=== PATIENT | male | born 1965 | race Caucasian/White ===

== ENCOUNTER 2023-10-13 08:15 | Emergency (ER) | payer MEDICARE, MEDICAID, SELFPAY ==
[2023-10-13 08:18] VITALS: BP 133/70; PULSE 96; RESP 16; TEMP 36; O2SAT 98
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
[2023-10-13 09:09] LABS: Color, Urine Yellow (Yellow); Glucose, Dipstick 1000 mg/dl (Normal); Ketone-Dipstick Negative (Negative); Leukocyte Esterase-Dipstick 100 /ul (Negative); Mucous, Urine 0 SEEN /hpf (<or=2+); Nitrite-Dipstick Negative (Negative); Occult Blood-Urine 25 /ul (Negative); Protein-Dipstick 15 mg/dl (Negative); Red Blood Cells-Urine 0 SEEN /hpf (0-5); Urine Bilirubin Dipstick Negative (Negative); Urine Clarity Cloudy (Clear); Urine Urobilinogen Normal (Normal); Urine pH 6.5 (5.0 - 8.0)
[2023-10-13 09:35] LABS: Squamous Epithelial Cells - UA 0-5 SEEN /hpf (0-5); White Blood Cells 50-100 SEEN /hpf (0-5)
[2023-10-13 09:36] LABS: Bacteria RARE /hpf (None Seen); Yeast-Urine 1+ /hpf (None Seen)
[2023-10-13] MEDS: Cephalexin 250 MG Capsule 500 MG PO (10:15)
[2023-10-13 10:24] VITALS: BP 130/65; PULSE 85; RESP 16; TEMP 37; O2SAT 99
== END 2023-10-13 10:25 | disposition home or self-care (01) ==
PROVIDERS: Emergency Provider Emergency Medicine; Visit Provider Emergency Medicine
DX: N39.0 Urinary tract infection, site not specified (principal); R33.9 Retention of urine, unspecified
CPT/HCPCS: 51702; 81001; 87086; 87088; 99283

== ENCOUNTER 2023-10-25 09:15 | Emergency (ER) | payer MEDICARE, MEDICAID, SELFPAY ==
[2023-10-25 09:16] VITALS: BP 136/80; PULSE 103; RESP 18; TEMP 37.1; O2SAT 97
[2023-10-25 09:29] VITALS: BP 130/90; PULSE 86; RESP 18; TEMP 36.8; O2SAT 94; BMI 26.1
--- NOTE | 2023-10-25 10:09 | EX.ED.GUMALE ---
HPI History of Present Illness Chief Complaint: Plata C/O Narrative Narrative: 58-year-old male presenting with inability to urinate. He states he typically self catheterizes but is unable to do so since last night at 730. He states that he has had Plata catheters in the past. He states that he established with a urologist in [place] yesterday. He was voiding at that point. He states he does get frequent UTIs. He is allergic to an unknown antibiotic. He has not had any fevers, chills. [facility] Medical History Hx of gastroesophageal reflux (GERD) PTSD (post-traumatic stress disorder) Prediabetes Anxiety and depression Paraplegia Home Medications ?Medication ?Instructions ?Recorded ?Last Taken ?Type cephalexin 500 mg capsule 500 mg PO Q12 #14 CAPSULES 10/13/23 Unknown Rx ciprofloxacin HCl 500 mg tablet 500 mg PO BID #14 tabs 10/25/23 Unknown Rx (Cipro) Allergy/AdvReac Type Severity Reaction Status Date / Time cephalexin (From Keflex) Allergy Severe Anaphylaxis Verified 10/25/23 11:55 latex Allergy Rash Verified 10/25/23 11:55 Social History Smoking Status: Former smoker ROS ROS ED Constitutional Constitutional ED: Denies chills, fever(s) or sweats Eyes Eyes: Denies blurry vision or change in vision ENT ENT ED: Denies ear pain or sore throat Cardiovascular Cardiovascular: Denies chest pain, palpitations or racing heartbeat Respiratory/Chest Respiratory/Chest: Denies cough, dyspnea or sputum Gastrointestinal Gastrointestinal: Denies abdominal pain, constipation, diarrhea, nausea or vomiting Genitourinary Genitourinary ED: Reports other Details: Inability to urinate ; Denies dysuria, hematuria or urinary frequency Musculoskeletal Musculoskeletal: Denies arthralgias, myalgias or neck pain Integumentary Denies abscess, Abrasions or rash Neurologic Neurologic: Denies headache(s), paresthesias or weakness Psychiatric Psychiatric: Denies anxiety, depression, suicidal ideation or suicidal thoughts Endocrine Endocrinology: Denies polydipsia or polyuria EXAM Physical Exam Const Vital Signs: 10/25/23 09:16 10/25/23 09:29 10/25/23 11:15 Temperature 98.7 F 98.2 F Temperature Source Temporal Oral Pulse Rate 103 H 86 73 Respiratory Rate 18 18 16 Blood Pressure 136/80 H 130/90 H 143/74 H Blood Pressure Mean 98 103 97 Pulse Ox 97 94 95 Oxygen Delivery Method Room Air Room Air Positive well nourished General Appearance ED: NAD HEENT Reports moist mucous membranes normocephalic and atraumatic Eyes PERRL Resp normal respiratory effort Cardio regular rate and regular rhythm Neuro oriented x3 and CN's II-XII intact bilaterally Sensorium / Orientation: alert Psych mental status grossly normal MDM MDM MDM Narrative Medical decision making narrative: Patient presenting with inability to urinate. He states he had frequent UTIs. He also self catheterizes and is unable to do so at home. Patient was discharged with a Plata catheter but states that something happened to it where it was not working so he removed it himself. Differential includes UTI, pyelonephritis, acute kidney injury. IV line was established. Patient given a liter normal saline. Urinalysis will be obtained via Plata catheterization. Will check basic labs including CBC, BMP. CBC shows normal white blood cell count of 6.7, hemoglobin 13.0, platelets 310 renal function and electrolytes normal. Glucose 155 without anion gap. Urinalysis shows. 50-100 white blood cells with no squamous epithelial cells and 4+ bacteria consistent with UTI. Sent for culture. Currently waiting for the patient to find out the antibiotic and is allergic to show ideally, dose here and a prescription for home. He is trying to contact his previous provider. Patient reports that he discovered his allergy was to Keflex which she just took last week. He reports that he has anaphylaxis to Keflex although he took a full prescription with no allergy. [facility] He is to leave the Plata catheter in place until he follows up with his urologist. Return precautions discussed. Impression: 1. Urinary retention 2. UTI Lab Data Attestation: I reviewed the patient's lab results. Labs: Laboratory Results - last 24 hr 10/25/23 10/25/23 10:30 10:40 WBC 6.7 RBC 4.73 Hgb 13.0 Hct 41.7 MCV 88.2 MCH 27.5 MCHC 31.2 L RDW Std Deviation 47.0 H RDW Coeff of [place] 14.6 Plt Count 310 MPV 9.3 Immature Gran % (Auto) 0.300 Neut % (Auto) 71.3 H Lymph % (Auto) 21.0 [place] % (Auto) 5.2 Eos % (Auto) 1.5 Baso % (Auto) 0.7 Absolute Neuts (auto) 4.8 Absolute Lymphs (auto) 1.40 Nucleated RBC % 0 Sodium 139 Potassium 3.5 Chloride 108 H Carbon Dioxide 30.0 Anion Gap 1 L BUN 10 Creatinine 0.88 Estim Creat Clear Calc 92.62 Est GFR (MDRD) Af Amer 115 Est GFR (MDRD) Non-Af 95 BUN/Creatinine Ratio 11.4 Glucose 155 H Calcium 9.2 Urine Color Yellow Urine Clarity Cloudy Urine pH 6.0 Ur Specific [place] 1.015 Urine Protein 30 H Urine Glucose (UA) 1000 H Urine Ketones Negative Urine Occult Blood 25 H Urine Nitrite Negative Urine Bilirubin Negative Urine Urobilinogen Normal Ur Leukocyte Esterase 500 H Urine RBC 0 SEEN Urine WBC 50-100 SEEN Ur Squamous Epith Cells 0 SEEN Urine Bacteria 4+ Urine Mucus 0 SEEN Discharge Plan Triage Chief Complaint: Plata C/O Other Complaint: Complaint ED Provider: Iglesia Wylie Dx/Rx/DC Orders Instructions: ED Plata Catheter, Care, ED Urinary Retention, Male, ED Urinary Tract Infections in Men Prescriptions: New ciprofloxacin HCl [Cipro] 500 mg tablet 500 mg PO BID Qty: 14 0RF No Action cephalexin 500 mg capsule 500 mg PO Q12 Qty: 14 0RF Primary Care Provider: Jocelynn Blue Referrals: Care Physician,No Primary [Non-Staff] - Print Language: Yi Disposition Disposition: Home, Self Care
[2023-10-25] MEDS: 0.9% Normal Saline (1000mL) 1,000 ML 1000 ML IV (10:30)
[2023-10-25 10:42] LABS: Absolute Neutrophil Count 4.8 X10^3/uL (2.0-7.7); Basophil# 0.05 X10^3/uL; Basophil% 0.7 % (0-1); Eosinophils% 1.5 % (0-5); Hematocrit 41.7 % (40-54); Mean Corp Hgb Conc 31.2 g/dL (32-36); Mean Corpuscular Hgb 27.5 pg (27.0-32.0); Mean Corpuscular Volume 88.2 fL (80-94); Mean Platelet Vol. 9.3 fl (6.2-12.0); Monocyte# 0.35 X10^3/uL; Monocyte% 5.2 % (0-10); NRBC Flagged by Analyzer 0 % (0-5); Neutrophil # 4.76 X10^3/uL (2.7-7.7); Neutrophil % 71.3 % (47-70); Platelet Count 310 K/mm3 (150-450); RBC Distribution Width CV 14.6 % (11.6-14.6); Red Blood Count 4.73 M/mm3 (4.6-6.2); White Blood Count 6.7 K/mm3 (4.4-11.0)
[2023-10-25 10:47] LABS: Red Blood Cells-Urine 0 SEEN /hpf (0-5); Squamous Epithelial Cells - UA 0 SEEN /hpf (0-5)
[2023-10-25 10:48] LABS: Mucous, Urine 0 SEEN /hpf (<or=2+)
[2023-10-25 10:49] LABS: Anion Gap 1 (5-15); BUN 10 mg/dL (7-18); BUN/Creat Ratio 11.4 RATIO (10-20); Calcium,Total 9.2 mg/dL (8.5-10.1); Chloride 108 mmol/L (98-107); Creatinine, Serum 0.88 mg/dL (0.70-1.30); EST Glomerular Filtration Rate 95 mL/min (>60); Est Glom Filt Rate - Afr Amer 115 mL/min (>60); Estimated Creatinine Clearance 92.62 ml/min; Glucose 155 mg/dL (74-106); Potassium 3.5 mmol/L (3.5-5.1); Sodium Level 139 mmol/L (136-145)
[2023-10-25 10:51] LABS: Color, Urine Yellow (Yellow); Glucose, Dipstick 1000 mg/dl (Normal); Ketone-Dipstick Negative (Negative); Leukocyte Esterase-Dipstick 500 /ul (Negative); Nitrite-Dipstick Negative (Negative); Occult Blood-Urine 25 /ul (Negative); Protein-Dipstick 30 mg/dl (Negative); Specific Gravity, Urine 1.015 (1.002-1.030); Urine Bilirubin Dipstick Negative (Negative); Urine Clarity Cloudy (Clear); Urine Urobilinogen Normal (Normal)
[2023-10-25 10:56] LABS: Bacteria 4+ /hpf (None Seen); White Blood Cells 50-100 SEEN /hpf (0-5)
[2023-10-25 11:15] VITALS: BP 143/74; PULSE 73; RESP 16; O2SAT 95
[2023-10-25 12:24] VITALS: BP 155/92; PULSE 88; RESP 16; TEMP 36.8; O2SAT 98
[2023-10-25] MEDS: Ciprofloxacin 500 MG Tablet PO (12:24)
== END 2023-10-25 12:39 | disposition home or self-care (01) ==
PROVIDERS: Emergency Provider Student in an Organized Health Care Education/Training Program; Visit Provider Student in an Organized Health Care Education/Training Program
DX: N39.0 Urinary tract infection, site not specified (principal); Z87.891 Personal history of nicotine dependence
CPT/HCPCS: 51702; 80048; 81001; 85025; 87077; 87086; 87088; 87186; 96360; 96361; 99284; J7030; A4216

== ENCOUNTER → 2023-10-30 | Outpatient (CLI) | payer MEDICARE, MEDICAID, SELFPAY ==
[2023-10-30 15:33] LABS: Amphetamine Urine VISTA NEGATIVE (<1000 ng/mL); Barbiturate Urine VISTA NEGATIVE (< 200 ng/mL); Benzodiazepine Urine VISTA NEGATIVE (< 200 ng/mL); Cocaine Urine VISTA NEGATIVE (< 300 ng/mL); Ecstacy Urine VISTA NEGATIVE (< 500 ng/mL); Methadone Urine VISTA NEGATIVE (< 300 ng/mL); PCP Urine VISTA NEGATIVE (< 25 ng/mL); THC Urine VISTA NEGATIVE (< 50 ng/mL); Vista UDS pH Range 5
== END | disposition home or self-care (01) ==
PROVIDERS: Referring Provider Anesthesiology; Visit Provider Anesthesiology
DX: F11.20 Opioid dependence, uncomplicated (principal)
CPT/HCPCS: 80307

== ENCOUNTER 2023-11-03 13:30 | Emergency (ER) | payer MEDICARE, MEDICAID, SELFPAY ==
[2023-11-03 13:32] VITALS: BP 104/79; PULSE 82; RESP 20; TEMP 37; O2SAT 93
[2023-11-03 13:57] VITALS: BMI 26.0
[2023-11-03] MEDS: Ondansetron 4 MG/2 ML Vial IV (14:37)
[2023-11-03] MEDS: 0.9% Normal Saline (1000mL) 1,000 ML 999 ML IV (14:38)
--- NOTE | 2023-11-03 14:45 | RAD_ITS ---
STUDY: X-RAY - ABDOMEN/PELVIS REASON FOR EXAM: Male, 58 years old. vomiting TECHNIQUE: Two AP supine views of the abdomen and pelvis. COMPARISON: None. FINDINGS: Normal visualized lung bases. There is an abundance of fecal material throughout the colon. There is no demonstrated free abdominal air. The visualized liver, spleen and kidneys are grossly normal in size and morphology. There are calcified phleboliths in the pelvis. Normal visualized osseous structures. RAD/Abdomen Single View IMPRESSION: No acute findings, retained stool throughout the colon Electronically Signed: Servando Cortez MD at 15:07 EDT ,
[2023-11-03 14:50] LABS: Absolute Lymphocyte Count 0.94 X10^3/uL (0.83-4.51); Absolute Neutrophil Count 9.4 X10^3/uL (2.0-7.7); Basophil# 0.03 X10^3/uL; Basophil% 0.3 % (0-1); Hematocrit 46.1 % (40-54); Hemoglobin 14.6 g/dL (13.0-16.5); Lymphocyte # 0.94 X10^3/ul (0.83-4.51); Lymphocyte % 8.8 % (19-41); Mean Corp Hgb Conc 31.7 g/dL (32-36); Mean Corpuscular Hgb 27.8 pg (27.0-32.0); Mean Corpuscular Volume 87.8 fL (80-94); Mean Platelet Vol. 10.3 fl (6.2-12.0); Monocyte# 0.32 X10^3/uL; NRBC Flagged by Analyzer 0 % (0-5); Neutrophil # 9.39 X10^3/uL (2.7-7.7); Neutrophil % 87.6 % (47-70); Platelet Count 358 K/mm3 (150-450); RBC Distribution Width CV 14.6 % (11.6-14.6); RBC Distribution Width SD 46.6 fl (35.1-43.9); Red Blood Count 5.25 M/mm3 (4.6-6.2); White Blood Count 10.7 K/mm3 (4.4-11.0)
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
[2023-11-03 15:26] LABS: AST(SGOT) 26 U/L (15-37); Alanine Aminotransfer ALT/SGPT 31 U/L (16-61); Albumin, Serum 3.8 g/dL (3.2-5.0); Alkaline Phosphatase 134 U/L (45-117); Anion Gap 10 (5-15); BUN 10 mg/dL (7-18); BUN/Creat Ratio 13.3 RATIO (10-20); Calcium,Total 9.5 mg/dL (8.5-10.1); Chloride 101 mmol/L (98-107); Creatinine, Serum 0.75 mg/dL (0.70-1.30); EST Glomerular Filtration Rate 114 mL/min (>60); Est Glom Filt Rate - Afr Amer 138 mL/min (>60); Estimated Creatinine Clearance 108.67 ml/min; Glucose 110 mg/dL (74-106); Lipase 10 U/L (13-75); Potassium 3.4 mmol/L (3.5-5.1); Protein, Total 7.8 g/dL (6.4-8.2); Sodium Level 136 mmol/L (136-145)
[2023-11-03] MEDS: Mag Hydrox/Al Hydrox/Simeth 30 ML UDC PO (15:34)
[2023-11-03 15:35] VITALS: BP 137/69; PULSE 76; RESP 15; TEMP 36.3; O2SAT 98
[2023-11-03 16:40] VITALS: BP 127/79; PULSE 88; RESP 18; TEMP 36.6; O2SAT 98
== END 2023-11-03 16:42 | disposition home or self-care (01) ==
PROVIDERS: Nurse Practitioner; Emergency Provider Emergency Medicine; PCP Family Medicine; Visit Provider Emergency Medicine
DX: R10.13 Epigastric pain (principal); G82.20 Paraplegia, unspecified; R11.2 Nausea with vomiting, unspecified; Z99.3 Dependence on wheelchair; Z87.891 Personal history of nicotine dependence
CPT/HCPCS: 74018; 80053; 83690; 85025; 96361; 96374; 99283; J7030; A4216; J2405

== ENCOUNTER 2023-11-09 08:10 | Outpatient (RCR) | payer MEDICARE, MEDICAID, SELFPAY | END 2023-11-09 19:00 | disposition home or self-care (01) | LOC: PT 08:10 | PROVIDERS: PCP Family Medicine | DX: M50.20 Other cervical disc displacement, unspecified cervical region (principal) | CPT/HCPCS: 97162 ==

== ENCOUNTER 2023-11-11 07:55 | Emergency (ER) | payer MEDICARE, MEDICAID, SELFPAY ==
[2023-11-11 07:56] VITALS: BP 119/74; PULSE 119; RESP 18; TEMP 36.1; O2SAT 99
--- NOTE | 2023-11-11 08:44 | EDS_ITS ---
HPI History of Present Illness Chief Complaint: General Illness Narrative Narrative: 58-year-old male presenting with nausea, vomiting, dyspepsia. Has had this for over a week. He states he was here about a week ago and treated for it. He had a GI cocktail at home and is unable to eat regular food. He is able to hold down Ensure but is unable to tolerate solid food. He had some Zofran which helped with the nausea and he ran out and he had his PCP refill it. He still has this helps with the nausea. He states he has burning in his throat and in his stomach. Denies fevers or chills. Denies diarrhea. Patient is on omeprazole 40 mg p.o. twice daily. He is also on oxycodone and morphine as well as Carafate and Zofran. [facility] Medical History Hx of gastroesophageal reflux (GERD) PTSD (post-traumatic stress disorder) Prediabetes Anxiety and depression Paraplegia Home Medications ?Medication ?Instructions ?Recorded ?Last Taken ?Type cephalexin 500 mg capsule 500 mg PO Q12 #14 CAPSULES 10/13/23 Unknown Rx ciprofloxacin HCl 500 mg tablet 500 mg PO BID #14 tabs 10/25/23 Unknown Rx (Cipro) aripiprazole 10 mg tablet 10 mg PO DAILY 11/03/23 Unknown History atorvastatin 40 mg tablet 40 mg PO QHS 11/03/23 Unknown History ciprofloxacin HCl 250 mg tablet 250 mg PO BID 11/03/23 Unknown History desvenlafaxine succinate 50 mg 50 mg PO DAILY 11/03/23 Unknown History tablet,extended release 24 hr empagliflozin 25 mg tablet 25 mg PO 11/03/23 Unknown History (Jardiance) guanfacine 1 mg tablet,extended 1 mg PO QPM 11/03/23 Unknown History release 24 hr methylprednisolone 4 mg tablets in PO UD 11/03/23 Unknown History a dose pack midodrine 5 mg tablet 5 mg PO DAILY 11/03/23 Unknown History morphine 30 mg capsule,extended 30 mg PO DAILY 11/03/23 Unknown History release pellets ondansetron 4 mg disintegrating 4 mg PO Q8H PRN PRN Nausea #10 tabs 11/03/23 Unknown Rx tablet oxycodone-acetaminophen 10 mg-325 1 tab PO Q6H PRN PRN severe pain 11/03/23 Unknown History mg tablet sucralfate 1 gram tablet (Carafate) 1 g PO TID 7 days #21 tabs 11/03/23 Unknown Rx famotidine 20 mg tablet (Pepcid) 20 mg PO DAILY PRN epigastric pain 11/11/23 Unknown Rx #20 tabs omeprazole 40 mg capsule,delayed 40 mg PO BID 11/11/23 Unknown History release sucralfate 100 mg/mL oral 10 ml PO BID #300 mL 11/11/23 Unknown Rx suspension (Carafate) Allergy/AdvReac Type Severity Reaction Status Date / Time cephalexin (From [employer]) Allergy Severe Anaphylaxis Verified 11/11/23 07:58 latex Allergy Rash Verified 11/11/23 07:58 Social History Smoking Status: Former smoker ROS ROS ED Constitutional Constitutional ED: Denies chills, fever(s) or sweats Eyes Eyes: Denies blurry vision or change in vision ENT ENT ED: Denies ear pain or sore throat Cardiovascular Cardiovascular: Denies chest pain, palpitations or racing heartbeat Respiratory/Chest Respiratory/Chest: Denies cough, dyspnea or sputum Gastrointestinal Gastrointestinal: Reports abdominal pain, nausea and vomiting; Denies constipation or diarrhea Genitourinary Genitourinary ED: Denies dysuria, hematuria or urinary frequency Musculoskeletal Musculoskeletal: Denies arthralgias, myalgias or neck pain Integumentary Denies abscess, Abrasions or rash Neurologic Neurologic: Denies headache(s), paresthesias or weakness Psychiatric Psychiatric: Denies anxiety, depression, suicidal ideation or suicidal thoughts Endocrine Endocrinology: Denies polydipsia or polyuria EXAM Physical Exam Const Vital Signs: 11/11/23 07:56 11/11/23 09:33 11/11/23 10:15 Temperature 96.9 F L 97.7 F L Temperature Source Temporal Temporal Pulse Rate 119 H 103 H Respiratory Rate 18 16 Respiratory Pattern Normal Blood Pressure 119/74 126/79 H Blood Pressure Mean 89 94 Pulse Ox 99 95 Oxygen Delivery Method Room Air Room Air Positive well nourished General Appearance ED: NAD; Negative for pallor HEENT Reports moist mucous membranes Eyes PERRL and EOMs intact bilaterally Resp normal respiratory effort and clear to auscultation bilaterally Cardio regular rate and regular rhythm GI GI Narrative: Mild epigastric tenderness Back/Spine no CVA tenderness Neuro oriented x3 and CN's II-XII intact bilaterally Sensorium / Orientation: alert Psych mental status grossly normal Skin General Skin Exam: Negative for jaundice or pallor MDM MDM MDM Narrative Medical decision making narrative: Patient presenting with nausea and epigastric as well as esophageal burning. He has a history of this. He states he is able to tolerate Ensure but nothing else. Differential includes GERD, gastritis, peptic ulcer disease, dehydration, anemia, electrolyte abnormalities. CBC will be obtained to assess white blood cell count, hemoglobin, platelets. CMP to assess renal function, electrolytes, liver function, glucose. Lipase to assess for pancreatitis. Urinalysis to assess for UTI. Patient given IV Zofran, IV Pepcid, GI cocktail. CBC shows normal white blood cell count 9.5. Hemoglobin 13.6. Platelets are normal at 364. Renal function electrolytes normal. LFTs are normal. Lipase is normal. Urine specimen was obtained from his catheter Plata catheter bag and shows 500 leukocyte esterase without nitrites and there is 50-100 white blood cells with 3+ bacteria this to be sent for culture. Patient is feeling better with GI cocktail treatment. On top of his omeprazole I will send him home with some more Carafate. After we discussed this he then complained that his left foot was swollen. It is not tender to palpation although the patient does not have much sensation in his feet. Pulses normal. His foot is a little bit red.. He has cap refill to all 5 toes. I think given the swelling an ultrasound would be appropriate of the lower extremity although we do not have that here today. He was amenable to an outpatient duplex. I have low suspicion for DVT so I will withhold anticoagulation overnight. Discharged home in stable condition. Impression: 1. Nausea/vomiting 2. History of GERD 3. Left foot swelling Lab Data Attestation: I reviewed the patient's lab results. Labs: Laboratory Results - last 24 hr 11/11/23 11/11/23 09:20 09:30 WBC 9.5 RBC 4.87 Hgb 13.6 Hct 42.6 MCV 87.5 MCH 27.9 MCHC 31.9 L RDW Std Deviation 46.5 H RDW Coeff of Darcy 14.5 Plt Count 364 MPV 9.7 Immature Gran % (Auto) 0.200 Neut % (Auto) 79.3 H Lymph % (Auto) 13.8 L Lea % (Auto) 5.4 Eos % (Auto) 0.9 Baso % (Auto) 0.4 Absolute Neuts (auto) 7.5 Absolute Lymphs (auto) 1.31 Nucleated RBC % 0 Sodium 139 Potassium 3.4 L Chloride 101 Carbon Dioxide 30.0 Anion Gap 8 BUN 14 Creatinine 0.76 Estim Creat Clear Calc 107.24 Est GFR (MDRD) Af Amer 136 Est GFR (MDRD) Non-Af 112 BUN/Creatinine Ratio 18.4 Glucose 145 H Calcium 9.7 Total Bilirubin 0.30 AST 20 ALT 26 Alkaline Phosphatase 102 Total Protein 7.3 Albumin 3.4 Globulin 3.9 Albumin/Globulin Ratio 0.9 Lipase 27 Urine Color Yellow Urine Clarity Cloudy Urine pH 6.5 Ur Specific Lizella 1.015 Urine Protein 30 H Urine Glucose (UA) 1000 H Urine Ketones 15 H Urine Occult Blood 25 H Urine Nitrite Negative Urine Bilirubin Negative Urine Urobilinogen Normal Ur Leukocyte Esterase 500 H Urine RBC 0 SEEN Urine WBC 50-100 SEEN Ur Squamous Epith Cells 0 SEEN Urine Bacteria 3+ Urine Mucus 0 SEEN Discharge Plan Triage Chief Complaint: General Illness ED Provider: Iglesia Wylie Dx/Rx/DC Orders Instructions: ED GERD (Adult) Prescriptions: New sucralfate [Carafate] 100 mg/mL suspension 10 ml PO BID Qty: 300 0RF famotidine [Pepcid] 20 mg tablet 20 mg PO DAILY PRN (Reason: epigastric pain) Qty: 20 0RF No Action cephalexin 500 mg capsule 500 mg PO Q12 Qty: 14 0RF ciprofloxacin HCl [Cipro] 500 mg tablet 500 mg PO BID Qty: 14 0RF omeprazole 40 mg capsule,delayed release(DR/EC) 40 mg PO BID atorvastatin 40 mg tablet 40 mg PO QHS midodrine 5 mg tablet 5 mg PO DAILY ciprofloxacin HCl 250 mg tablet 250 mg PO BID oxycodone-acetaminophen 10-325 mg tablet 1 tab PO Q6H PRN PRN (Reason: severe pain) methylprednisolone 4 mg tablets,dose pack PO UD aripiprazole 10 mg tablet 10 mg PO DAILY morphine 30 mg capsule,extend.release pellets 30 mg PO DAILY desvenlafaxine succinate 50 mg tablet extended release 24 hr 50 mg PO DAILY guanfacine 1 mg tablet extended release 24 hr 1 mg PO QPM Jardiance 25 mg tablet 25 mg PO sucralfate [Carafate] 1 gram tablet 1 g PO TID 7 Days Qty: 21 0RF ondansetron 4 mg tablet,disintegrating 4 mg PO Q8H PRN PRN (Reason: Nausea) Qty: 10 0RF Other Ambulatory Orders: Venous Duplex US, Unilateral (Stat) Facility: [facility] [place] - Location: [facility] Ordered By: Dr. Iglesia Wylie Primary Care Provider: Jocelynn Blue Referrals: Jocelynn Blue MD [Primary Care Provider] - Print Language: Cambodian Disposition Disposition: Home, Self Care Discharge Date/Time: 11/11/23 12:36
[2023-11-11] MEDS: 0.9% Normal Saline (1000mL) 1,000 ML 999 ML IV (09:24)
[2023-11-11] MEDS: Ondansetron 4 MG/2 ML Vial IV (09:24)
[2023-11-11 09:29] LABS: Absolute Lymphocyte Count 1.31 X10^3/uL (0.83-4.51); Absolute Neutrophil Count 7.5 X10^3/uL (2.0-7.7); Basophil# 0.04 X10^3/uL; Basophil% 0.4 % (0-1); Eosinophil# 0.09 X10^3/uL; Eosinophils% 0.9 % (0-5); Hematocrit 42.6 % (40-54); Hemoglobin 13.6 g/dL (13.0-16.5); Lymphocyte # 1.31 X10^3/ul (0.83-4.51); Lymphocyte % 13.8 % (19-41); Mean Corp Hgb Conc 31.9 g/dL (32-36); Mean Corpuscular Hgb 27.9 pg (27.0-32.0); Mean Corpuscular Volume 87.5 fL (80-94); Mean Platelet Vol. 9.7 fl (6.2-12.0); Monocyte# 0.51 X10^3/uL; Monocyte% 5.4 % (0-10); NRBC Flagged by Analyzer 0 % (0-5); Neutrophil # 7.51 X10^3/uL (2.7-7.7); Neutrophil % 79.3 % (47-70); Platelet Count 364 K/mm3 (150-450); RBC Distribution Width CV 14.5 % (11.6-14.6); RBC Distribution Width SD 46.5 fl (35.1-43.9); Red Blood Count 4.87 M/mm3 (4.6-6.2); White Blood Count 9.5 K/mm3 (4.4-11.0)
[2023-11-11] MEDS: Mag Hydrox/Al Hydrox/Simeth 30 ML UDC PO (09:30)
[2023-11-11] MEDS: Famotidine 200 MG/20 ML MDV 20 MG in 0.9% Normal Saline (Pres. free 8 ML 300 MG IV (09:30)
[2023-11-11 09:32] VITALS: BMI 24.7
[2023-11-11 09:40] LABS: Mucous, Urine 0 SEEN /hpf (<or=2+); Red Blood Cells-Urine 0 SEEN /hpf (0-5); Squamous Epithelial Cells - UA 0 SEEN /hpf (0-5)
[2023-11-11 09:41] LABS: ALB/GLOB Ratio 0.9 RATIO (0.9-2.4); AST(SGOT) 20 U/L (15-37); Alanine Aminotransfer ALT/SGPT 26 U/L (16-61); Albumin, Serum 3.4 g/dL (3.2-5.0); Alkaline Phosphatase 102 U/L (45-117); Anion Gap 8 (5-15); BUN 14 mg/dL (7-18); BUN/Creat Ratio 18.4 RATIO (10-20); Calcium,Total 9.7 mg/dL (8.5-10.1); Chloride 101 mmol/L (98-107); Creatinine, Serum 0.76 mg/dL (0.70-1.30); EST Glomerular Filtration Rate 112 mL/min (>60); Est Glom Filt Rate - Afr Amer 136 mL/min (>60); Estimated Creatinine Clearance 107.24 ml/min; Globulin 3.9 g/dL (2.2-4.2); Glucose 145 mg/dL (74-106); Lipase 27 U/L (13-75); Potassium 3.4 mmol/L (3.5-5.1); Protein, Total 7.3 g/dL (6.4-8.2); Sodium Level 139 mmol/L (136-145)
[2023-11-11 09:43] LABS: Color, Urine Yellow (Yellow); Glucose, Dipstick 1000 mg/dl (Normal); Ketone-Dipstick 15 mg/dl (Negative); Leukocyte Esterase-Dipstick 500 /ul (Negative); Nitrite-Dipstick Negative (Negative); Occult Blood-Urine 25 /ul (Negative); Protein-Dipstick 30 mg/dl (Negative); Specific Gravity, Urine 1.015 (1.002-1.030); Urine Bilirubin Dipstick Negative (Negative); Urine Clarity Cloudy (Clear); Urine Urobilinogen Normal (Normal); Urine pH 6.5 (5.0 - 8.0)
[2023-11-11 09:51] LABS: Bacteria 3+ /hpf (None Seen); White Blood Cells 50-100 SEEN /hpf (0-5)
[2023-11-11 10:15] VITALS: BP 126/79; PULSE 103; RESP 16; TEMP 36.5; O2SAT 95
== END 2023-11-11 12:36 | disposition home or self-care (01) ==
PROVIDERS: Emergency Provider Student in an Organized Health Care Education/Training Program; PCP Family Medicine; Visit Provider Student in an Organized Health Care Education/Training Program
DX: R11.2 Nausea with vomiting, unspecified (principal); M79.89 Other specified soft tissue disorders; R73.03 Prediabetes; K21.9 Gastro-esophageal reflux disease without esophagitis; Z87.891 Personal history of nicotine dependence; Z79.899 Other long term (current) drug therapy
CPT/HCPCS: 80053; 81001; 83690; 85025; 87077; 87086; 87088; 87186; 96361; 96374; 96375; 99282; A4216; J2405; J3490

== ENCOUNTER 2023-11-12 12:03 | Emergency (ER) | payer MEDICARE, MEDICAID, SELFPAY ==
[2023-11-12 12:04] VITALS: BP 118/71; PULSE 93; RESP 18; TEMP 36.4; O2SAT 97
[2023-11-12] MEDS: Rivaroxaban 15 MG Tablet PO (13:23)
--- NOTE | 2023-11-12 13:38 | ED.RN ---
THIS RN GAVE PATIENT DISCHARGE INSTRUCTIONS AND EMPHASIZED NEED TO F/U WITH DR. CARIN CEDEÑO AND BEGIN TAKING THE XARELTO. PT. STATES MY NEICE IS ANURE AND TOLD ME NOT TO FOLLOW UP WITH THAT DR AND THAT I NEED TO GO TO [facility]... THIS RN STATED PATIENT WAS ADVISED TO F/U WITH DR. CAPELLAN VIA DISCHARGE PAPERS BUT HE COULD CALL HIS PCP FOR A NUMBER FOR ANOTHER VASCULAR SURGEON THROUGHT THE CLINIC IF HE PREFERRED.
--- NOTE | 2023-11-12 15:10 | ED.VIS.LOWEX ---
HPI History of Present Illness Chief Complaint: Lower Extremity Injury Narrative Narrative: 58-year-old male presenting with left leg pain slight discoloration. Patient is paraplegic and does not have much sensation in his legs. He was seen yesterday for gastritis/GERD and was concerned about the pain in his foot. He was given discharge instructions to follow-up for DVT study and when he did he had extensive DVT from the left groin all the way to the left foot. [facility] Medical History Hx of gastroesophageal reflux (GERD) PTSD (post-traumatic stress disorder) Prediabetes Anxiety and depression Paraplegia Home Medications ?Medication ?Instructions ?Recorded ?Last Taken ?Type cephalexin 500 mg capsule 500 mg PO Q12 #14 CAPSULES 10/13/23 Unknown Rx ciprofloxacin HCl 500 mg tablet 500 mg PO BID #14 tabs 10/25/23 Unknown Rx (Cipro) aripiprazole 10 mg tablet 10 mg PO DAILY 11/03/23 Unknown History atorvastatin 40 mg tablet 40 mg PO QHS 11/03/23 Unknown History ciprofloxacin HCl 250 mg tablet 250 mg PO BID 11/03/23 Unknown History desvenlafaxine succinate 50 mg 50 mg PO DAILY 11/03/23 Unknown History tablet,extended release 24 hr empagliflozin 25 mg tablet 25 mg PO 11/03/23 Unknown History (Jardiance) guanfacine 1 mg tablet,extended 1 mg PO QPM 11/03/23 Unknown History release 24 hr methylprednisolone 4 mg tablets in PO UD 11/03/23 Unknown History a dose pack midodrine 5 mg tablet 5 mg PO DAILY 11/03/23 Unknown History morphine 30 mg capsule,extended 30 mg PO DAILY 11/03/23 Unknown History release pellets ondansetron 4 mg disintegrating 4 mg PO Q8H PRN PRN Nausea #10 tabs 11/03/23 Unknown Rx tablet oxycodone-acetaminophen 10 mg-325 1 tab PO Q6H PRN PRN severe pain 11/03/23 Unknown History mg tablet sucralfate 1 gram tablet (Carafate) 1 g PO TID 7 days #21 tabs 11/03/23 Unknown Rx famotidine 20 mg tablet (Pepcid) 20 mg PO DAILY PRN epigastric pain 11/11/23 Unknown Rx #20 tabs omeprazole 40 mg capsule,delayed 40 mg PO BID 11/11/23 Unknown History release sucralfate 100 mg/mL oral 10 ml PO BID #300 mL 11/11/23 Unknown Rx suspension (Carafate) rivaroxaban 15 mg (42)-20 mg (9) See Rx Instructions PO .COMPLEX 11/12/23 Unknown Rx tablets in a starter pack (Xarelto #51 tabs DVT-PE Treatment 30-Day Starter) Allergy/AdvReac Type Severity Reaction Status Date / Time cephalexin (From [employer]) Allergy Severe Anaphylaxis Verified 11/12/23 12:04 latex Allergy Rash Verified 11/12/23 12:04 Social History Smoking Status: Former smoker ROS ROS ED Constitutional Constitutional ED: Denies chills, fever(s) or sweats Eyes Eyes: Denies blurry vision or change in vision ENT ENT ED: Denies ear pain or sore throat Cardiovascular Cardiovascular: Denies chest pain, palpitations or racing heartbeat Respiratory/Chest Respiratory/Chest: Denies cough, dyspnea or sputum Gastrointestinal Gastrointestinal: Denies abdominal pain, constipation, diarrhea, nausea or vomiting Genitourinary Genitourinary ED: Denies dysuria, hematuria or urinary frequency Musculoskeletal Musculoskeletal: Reports other Details: Left leg swelling mild erythema to the leg. ; Denies arthralgias, myalgias or neck pain Integumentary Denies abscess, Abrasions or rash Neurologic Neurologic: Denies headache(s), paresthesias or weakness Psychiatric Psychiatric: Denies anxiety, depression, suicidal ideation or suicidal thoughts Endocrine Endocrinology: Denies polydipsia or polyuria EXAM Physical Exam Const Vital Signs: 11/12/23 12:04 Temperature 97.6 F L Temperature Source Temporal Pulse Rate 93 Respiratory Rate 18 Blood Pressure 118/71 Blood Pressure Mean 86 Pulse Ox 97 Positive well nourished General Appearance ED: NAD HEENT Reports moist mucous membranes normocephalic Neck full ROM Resp normal respiratory effort Cardio regular rate and regular rhythm Extremity Extremity Narrative: Discharge patient has mild erythema to the left distal leg from the mid calf down. Pulses 2+. Brisk cap refill to all 5 toes. Neuro oriented x3 Sensorium / Orientation: alert Psych mental status grossly normal MDM MDM MDM Narrative Medical decision making narrative: Patient presenting with DVT from the left inguinal region to the left foot. Discussed case with Dr. High who recommended anticoagulation. We will start the patient on Xarelto. Patient will follow-up with Dr. High as an outpatient. He is amenable this plan. We discussed at length risk versus benefit of being on oral anticoagulation and return precautions. Patient understanding. Impression: 1. DVT left lower extremity Discharge Plan Triage Chief Complaint: Lower Extremity Injury ED Provider: Iglesia Wylie Dx/Rx/DC Orders Instructions: ED Deep Vein Thrombosis (DVT) Prescriptions: New Xarelto DVT-PE Treat 30d Start 15 mg (42)- 20 mg (9) tablets,dose pack See Rx Instructions .ROUTE .COMPLEX Qty: 51 0RF Rx Instructions: take one-15 mg tablet twice daily for 21 days, then one-20 mg tablet once daily; must take with meal/food No Action cephalexin 500 mg capsule 500 mg PO Q12 Qty: 14 0RF ciprofloxacin HCl [Cipro] 500 mg tablet 500 mg PO BID Qty: 14 0RF omeprazole 40 mg capsule,delayed release(DR/EC) 40 mg PO BID sucralfate [Carafate] 100 mg/mL suspension 10 ml PO BID Qty: 300 0RF famotidine [Pepcid] 20 mg tablet 20 mg PO DAILY PRN (Reason: epigastric pain) Qty: 20 0RF atorvastatin 40 mg tablet 40 mg PO QHS midodrine 5 mg tablet 5 mg PO DAILY ciprofloxacin HCl 250 mg tablet 250 mg PO BID oxycodone-acetaminophen 10-325 mg tablet 1 tab PO Q6H PRN PRN (Reason: severe pain) methylprednisolone 4 mg tablets,dose pack PO UD aripiprazole 10 mg tablet 10 mg PO DAILY morphine 30 mg capsule,extend.release pellets 30 mg PO DAILY desvenlafaxine succinate 50 mg tablet extended release 24 hr 50 mg PO DAILY guanfacine 1 mg tablet extended release 24 hr 1 mg PO QPM Jardiance 25 mg tablet 25 mg PO sucralfate [Carafate] 1 gram tablet 1 g PO TID 7 Days Qty: 21 0RF ondansetron 4 mg tablet,disintegrating 4 mg PO Q8H PRN PRN (Reason: Nausea) Qty: 10 0RF Primary Care Provider: Jocelynn Blue Referrals: Terrance High MD [Med Staff - Active Staff] - As soon as possible Jocelynn Blue MD [Primary Care Provider] - Print Language: Macedonian Disposition Disposition: Home, Self Care Discharge Date/Time: 11/12/23 13:34
== END 2023-11-12 13:34 | disposition home or self-care (01) ==
PROVIDERS: Emergency Provider Student in an Organized Health Care Education/Training Program; PCP Family Medicine; Visit Provider Student in an Organized Health Care Education/Training Program
DX: I82.402 Acute embolism and thrombosis of unspecified deep veins of left lower extremity (principal); G82.20 Paraplegia, unspecified; Z87.891 Personal history of nicotine dependence
CPT/HCPCS: 99282

== ENCOUNTER → 2023-11-12 | Outpatient (CLI) | payer MEDICARE, MEDICAID, SELFPAY ==
--- NOTE | 2023-11-12 10:48 | VDLE_ITS ---
Reason For Study: Swelling LLE RIGHT LEFT CFV is compressible, spontaneous, phasic, GSV is normal. competent and demonstrates normal Lt CFV, Lt FV, Lt PopV, and Lt T/P Trunk are augmentation. DILATED and NON COMPRESSIBLE consistent with Procedure acute DVT This is a venous duplex using B-mode, color DVT in the groin is not well adhered to vein flow and spectral Doppler. wall. Exam performed in department. PTV is compressible. A preliminary report was called and/or faxed LT PerV is compressible. to Priscilla. VL/Venous Duplex US, Unilateral Interpretation Summary Acute deep vein thrombosis is noted in the left common femoral vein, femoral ve in, popliteal vein, tibioperoneal trunk vein Ordering Physician: Iglesia Wylie Referring Physician: Jocelynn Blue Performed By: Trang Crain, PRISCILLA, RVT
== END | disposition home or self-care (01) ==
LOC: CVS 10:46
PROVIDERS: PCP Family Medicine; Referring Provider Student in an Organized Health Care Education/Training Program; Visit Provider Student in an Organized Health Care Education/Training Program
DX: R22.42 Localized swelling, mass and lump, left lower limb (principal)
CPT/HCPCS: 93971

== ENCOUNTER 2023-11-22 21:19 | Inpatient (IN) | payer MEDICARE, MEDICAID, SELFPAY ==
[2023-11-22 21:19] VITALS: BP 142/83; PULSE 134; RESP 19; O2SAT 97
[2023-11-22 21:20] VITALS: BP 142/83; PULSE 134; TEMP 37.9; O2SAT 98; BMI 25.2
[2023-11-22 21:43] LABS: Absolute Lymphocyte Count 1.62 X10^3/uL (0.83-4.51); Absolute Neutrophil Count 14.8 X10^3/uL (2.0-7.7); Basophil# 0.06 X10^3/uL; Basophil% 0.3 % (0-1); Hematocrit 47.1 % (40-54); Hemoglobin 15.1 g/dL (13.0-16.5); Lymphocyte # 1.62 X10^3/ul (0.83-4.51); Lymphocyte % 9.1 % (19-41); Mean Corp Hgb Conc 32.1 g/dL (32-36); Mean Corpuscular Hgb 27.3 pg (27.0-32.0); Mean Platelet Vol. 10.4 fl (6.2-12.0); Monocyte# 1.19 X10^3/uL; Monocyte% 6.7 % (0-10); NRBC Flagged by Analyzer 0 % (0-5); Neutrophil # 14.82 X10^3/uL (2.7-7.7); Neutrophil % 83.3 % (47-70); Platelet Count 354 K/mm3 (150-450); RBC Distribution Width CV 13.5 % (11.6-14.6); RBC Distribution Width SD 42.1 fl (35.1-43.9); Red Blood Count 5.54 M/mm3 (4.6-6.2); White Blood Count 17.8 K/mm3 (4.4-11.0)
[2023-11-22] MEDS: Morphine 4 MG/ML Syringe IV ×2 (21:46→23:50)
[2023-11-22] MEDS: Ondansetron 4 MG/2 ML Vial IV (21:46)
[2023-11-22 21:54] LABS: International Normalized Ratio 2.5; Prothrombin Time (Protime)PT. 26.7 SECONDS (11.7-14.9)
[2023-11-22 21:55] LABS: Partial Thromboplast Time 54.4 Seconds (24.1-36.2)
--- NOTE | 2023-11-22 21:56 | CT_ITS ---
STUDY: CT ABDOMEN AND PELVIS WITH CONTRAST REASON FOR EXAM: Male, 58 years old. abd pain and gi bleed RADIATION DOSAGE (If Supplied By Facility): CTDIvol = ( 17.46 ) mGy, DLP = ( 827.21 ) mGycm TECHNIQUE: IV 100mL Isovue-370 was administered. Transaxial images were obtained from the dome of the diaphragm to the symphysis pubis in the portal venous phase. Multiplanar coronal and sagittal images were reformatted. Individualized Dose Optimization Techniques Were Used For This CT. COMPARISON: No relevant prior comparison study available FINDINGS: LOWER CHEST: Lung bases are clear. No cardiomegaly or pericardial effusion. LIVER: The liver is normal in size, shape, and attenuation. No focal mass. GALLBLADDER AND BILIARY TREE: Cholecystectomy. No intra- or extrahepatic biliary ductal dilation. PANCREAS: No focal cystic or solid mass. SPLEEN: Normal size without focal cystic or solid mass. ADRENAL GLANDS: No nodules. KIDNEYS AND URETERS: Normal renal size and position. No hydronephrosis or nephrolithiasis. Bilateral renal excretion. PERITONEUM: No ascites or free air. No other fluid collection. BOWEL: Small hiatal hernia. The stomach is otherwise unremarkable. Normal caliber small bowel. There is no obstruction. No colonic wall thickening or inflammation. No evidence of acute appendicitis. LYMPH NODES: No enlarged mesenteric or retroperitoneal lymph nodes. VESSELS: Aorta is non-dilated. Mild atherosclerotic calcification. URINARY BLADDER: Unremarkable. REPRODUCTIVE ORGANS: No pelvic masses. ABDOMINAL WALL: No discrete abdominal or pelvic wall hernia. BONES: No lytic or blastic abnormality. Mild degenerative changes of the hips. CT/Abdomen/Pelvis W IV Cont ONLY IMPRESSION: No acute finding in the abdomen or pelvis. No inflammatory change. Electronically Signed: Sourav Soares MD at 23:13 EDT ,
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
[2023-11-22] MEDS: 0.9% Normal Saline (500mL Bag) 500 ML 1000 ML IV (22:18)
[2023-11-22] MEDS: Pantoprazole Sodium 80 MG in 0.9% Normal Saline (50mL Bag) 15 ML 420 MG IV BOLUS (22:18)
[2023-11-22 22:19] VITALS: BP 142/85; PULSE 130; RESP 16; O2SAT 98
[2023-11-22 23:00] VITALS: BP 115/94; PULSE 130; RESP 18; TEMP 36.8; O2SAT 96
[2023-11-22 23:36] VITALS: BP 115/94; PULSE 129; RESP 19; TEMP 36.8; O2SAT 96
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
[2023-11-23] VITALS (18 sets, daily range): BP systolic 92–148; BP diastolic 62–105; PULSE 107–124; RESP 16–28; TEMP 36.3–37.9; O2SAT 92–100; BMI 24.6
--- NOTE | 2023-11-23 | EGD_PTH ---
PATIENT: ARTHUR STINSON LOC: [facility] U#:[id number] AGE/SX: 58/M ROOM: [facility] RE11/22/[address]: Dr. No Dawkins DO : 1965 BED: 1 DIS: 11/27/2023 SPEC #: [id number] RECD: 11/23/23 13:44 STATUS: LETI RE #: [id number] NIRU: 11/23/23 00:[address]: Ponce Ordonez DEPT: SURGICAL PATHOLOGY RECD BY: Basil Hannon ENTERED: 11/26/23 08:25 SP TYPE: EGD BIOPSY OT DR: DO Dr. Terrance Hamm MD Dr. Kathryn Lee, DO Dr. Katherine Westra, MD Dr. Nana Yaa Koram, MD Dr. Robert Leininger, MD Tissues: Esophagus, NOS Procedures: Special Stain Group I Surgery Specimen Level IV Alcian Blue/PAS (control) HEADER OPERATION: EGD, biopsy, electrohemostasis PRE-OP DIAGNOSIS: Coffee-ground emesis and dark stools TISSUE SUBMITTED: Distal esophagus biopsy MICROSCOPIC DIAGNOSIS Distal esophagus, biopsy: Gastroesophageal junctional mucosa with mild chronic and focal acute inflammation. Fibrinopurulent material suggestive of ulcer. No evidence of goblet cell metaplasia. See comment. / 11/27/2023 COMMENT Alcian blue/PAS stain with matched control supports the above diagnosis. MICROSCOPIC DESCRIPTION Slides are reviewed. GROSS DESCRIPTION Received in fixative is one container labeled with the patient's name and designated Distal esophagus biopsy. The specimen consists of multiple irregular fragments of light rucker soft tissue that in aggregate measure 0.6 x 0.3 x 0.1 cm. The specimen is totally submitted in one cassette. / 11/26/2023 TC:5 CPT:25492,42750
[2023-11-23] MEDS: Lactated Ringers 1,000 ML 999 ML IV (00:24)
[2023-11-23 01:12] LABS: ALB/GLOB Ratio 0.9 RATIO (0.9-2.4); AST(SGOT) 46 U/L (15-37); Alanine Aminotransfer ALT/SGPT 65 U/L (16-61); Alkaline Phosphatase 95 U/L (45-117); Anion Gap 11 (5-15); BUN 32 mg/dL (7-18); BUN/Creat Ratio 29.6 RATIO (10-20); Calcium,Total 8.6 mg/dL (8.5-10.1); Chloride 98 mmol/L (98-107); Creatinine, Serum 1.08 mg/dL (0.70-1.30); EST Glomerular Filtration Rate 75 mL/min (>60); Est Glom Filt Rate - Afr Amer 91 mL/min (>60); Estimated Creatinine Clearance 75.46 ml/min; Globulin 3.3 g/dL (2.2-4.2); Glucose 329 mg/dL (74-106); Potassium 3.9 mmol/L (3.5-5.1); Protein, Total 6.3 g/dL (6.4-8.2); Sodium Level 127 mmol/L (136-145)
[2023-11-23] MEDS: Lactated Ringers 1,000 ML 100 ML IV (01:52)
[2023-11-23 02:35] LABS: Hemoglobin A1c 6.6 % (3.8-5.6)
[2023-11-23] MEDS: Acetaminophen 325 MG Tablet 650 MG PO ×2 (04:20→20:46)
[2023-11-23] MEDS: Ondansetron 4 MG/2 ML Vial IV ×3 (04:20→21:40)
[2023-11-23] MEDS: oxyCODONE 5 MG Tablet 10 MG PO ×3 (04:21→20:46)
[2023-11-23 04:45] LABS: Mucous, Urine 0 SEEN /hpf (<or=2+)
[2023-11-23 05:13] LABS: Color, Urine Yellow (Yellow); Glucose, Dipstick 1000 mg/dl (Normal); Ketone-Dipstick Negative (Negative); Leukocyte Esterase-Dipstick 500 /ul (Negative); Nitrite-Dipstick Positive (Negative); Occult Blood-Urine 50 /ul (Negative); Protein-Dipstick 30 mg/dl (Negative); Specific Gravity, Urine 1.015 (1.002-1.030); Urine Bilirubin Dipstick Negative (Negative); Urine Clarity Cloudy (Clear); Urine Urobilinogen Normal (Normal)
[2023-11-23 05:42] LABS: Osmolality, Urine 763 mOsm/KG
[2023-11-23 05:46] LABS: Hematocrit 47.7 % (40-54); Hemoglobin 15.7 g/dL (13.0-16.5); Mean Corp Hgb Conc 32.9 g/dL (32-36); Mean Corpuscular Hgb 27.4 pg (27.0-32.0); Mean Corpuscular Volume 83.2 fL (80-94); Mean Platelet Vol. 10.5 fl (6.2-12.0); Platelet Count 320 K/mm3 (150-450); RBC Distribution Width CV 13.6 % (11.6-14.6); RBC Distribution Width SD 41.2 fl (35.1-43.9); Red Blood Count 5.73 M/mm3 (4.6-6.2); White Blood Count 16.3 K/mm3 (4.4-11.0)
[2023-11-23 05:52] LABS: Urine Sodium 11 mmol/L (Not Establ.)
--- NOTE | 2023-11-23 05:55 | EKG12_ITS ---
Test Reason : PRE-OP Blood Pressure : / mmHG Vent. Rate : 125 BPM Atrial Rate : 125 BPM P-R Int : 140 ms QRS Dur : 068 ms QT Int : 412 ms P-R-T Axes : 069 071 074 degrees QTc Int : 594 ms Critical Test Result: Long QTc Sinus tachycardia Otherwise normal ECG No previous ECGs available Confirmed by ARA STONE, VANESSA ([id number]), market editor THERON TAPIA ([id number]) on 11/27/2023 9:28:37 AM Referred By: Confirmed By:VANESSA BULLOCK MD
[2023-11-23 06:06] LABS: Anion Gap 14 (5-15); BUN 31 mg/dL (7-18); BUN/Creat Ratio 27.9 RATIO (10-20); Calcium,Total 8.6 mg/dL (8.5-10.1); Chloride 98 mmol/L (98-107); Creatinine, Serum 1.11 mg/dL (0.70-1.30); EST Glomerular Filtration Rate 73 mL/min (>60); Est Glom Filt Rate - Afr Amer 88 mL/min (>60); Estimated Creatinine Clearance 73.42 ml/min; Glucose 271 mg/dL (74-106); Potassium 4.6 mmol/L (3.5-5.1); Sodium Level 131 mmol/L (136-145)
[2023-11-23] MEDS: Menthol/Lanolin/Calamine/Znox 113 GM Tube 1 APPLIC TOPICAL (06:46)
[2023-11-23 06:48] LABS: Bedside Glucose 249 mg/dL (74-106)
[2023-11-23 06:50] LABS: Bacteria 3+ /hpf (None Seen); Red Blood Cells-Urine 0-5 SEEN /hpf (0-5); Squamous Epithelial Cells - UA 0-5 SEEN /hpf (0-5); White Blood Cells 50-100 SEEN /hpf (0-5); Yeast-Urine 2+ /hpf (None Seen)
[2023-11-23 08:05] LABS: Osmolality, Serum 309 mOsm/KG (275-295)
--- NOTE | 2023-11-23 08:07 | EX.PCM.CON.S ---
Assessment & Plan Assessment/Plan (1) Acute upper GI bleed: (2) DVT (deep venous thrombosis): PLAN: Plan With his extensive LLE DVT, concern for GI bleeding, and ongoing risk secondary to paraplegia do feel he is appropriate candidate for IVC filter placement. The procedure details including risks, benefits, and recovery were discussed with the patient. He does wish to proceed. He has already been NPO for anticiapted endoscopy today. Coumadin is held, last INR 2.5. Will proceed with IVC filter placement this morning. HPI Consult Data Date of Consult: 11/23/23 HPI Narrative HPI Narrative: ARTHUR STINSON, is a 58 M who presented to the [facility] ER overnight with a 2-3 day history of coffee-ground emesis and dark stools. He reports every stool and emesis was dark and it progressed to the point where he could not keep down any food or drink. About 2 weeks ago, he was in the ER with LLE edema and was diagnosed with extensive LLE DVT up to the level of the CFV. At that time, he was initiated on Xarelto. At some point over the last two weeks, he was transitioned to Coumadin for unclear reasons. Patient reports that he does not think he had been having outpatient INRs drawn. Notably, he is essentially paraplegic from an accident over 20 years ago. He denies any prior known history of VTE. He denies prior episodes of coffee ground emesis or melanotic stools. He denies prior vascular interventions or history of radiation. His coumadin is held. He is NPO for anticipated endoscopy today. We are consulted for consideration of IVC filter. [facility] Medical History Hx of gastroesophageal reflux (GERD) PTSD (post-traumatic stress disorder) Prediabetes Anxiety and depression Paraplegia Home Medications ?Medication ?Instructions ?Recorded ?Last Taken ?Type cephalexin 500 mg capsule 500 mg PO Q12 #14 CAPSULES 10/13/23 Unknown Rx ciprofloxacin HCl 500 mg tablet 500 mg PO BID #14 tabs 10/25/23 Unknown Rx (Cipro) aripiprazole 10 mg tablet 10 mg PO DAILY 11/03/23 Unknown History atorvastatin 40 mg tablet 40 mg PO QHS 11/03/23 Unknown History ciprofloxacin HCl 250 mg tablet 250 mg PO BID 11/03/23 Unknown History desvenlafaxine succinate 50 mg 50 mg PO DAILY 11/03/23 Unknown History tablet,extended release 24 hr empagliflozin 25 mg tablet 25 mg PO .once 11/03/23 Unknown History (Jardiance) guanfacine 1 mg tablet,extended 1 mg PO QPM 11/03/23 Unknown History release 24 hr midodrine 5 mg tablet 5 mg PO DAILY 11/03/23 Unknown History morphine 30 mg capsule,extended 30 mg PO DAILY 11/03/23 Unknown History release pellets ondansetron 4 mg disintegrating 4 mg PO Q8H PRN PRN Nausea #10 tabs 11/03/23 Unknown Rx tablet oxycodone-acetaminophen 10 mg-325 1 tab PO Q6H PRN PRN severe pain 11/03/23 Unknown History mg tablet sucralfate 1 gram tablet (Carafate) 1 g PO TID 7 days #21 tabs 11/03/23 Unknown Rx famotidine 20 mg tablet (Pepcid) 20 mg PO DAILY PRN epigastric pain 11/11/23 Unknown Rx #20 tabs omeprazole 40 mg capsule,delayed 40 mg PO BID 11/11/23 Unknown History release sucralfate 100 mg/mL oral 10 ml PO BID #300 mL 11/11/23 Unknown Rx suspension (Carafate) rivaroxaban 15 mg (42)-20 mg (9) See Rx Instructions PO .COMPLEX 11/12/23 Unknown Rx tablets in a starter pack (Xarelto #51 tabs DVT-PE Treatment 30-Day Starter) nitrofurantoin 100 mg PO Q12H 7 days #14 caps 11/13/23 Unknown Rx monohydrate/macrocrystals 100 mg capsule (Macrobid) oxycodone myristate 18 mg capsule 18 mg PO BID 11/22/23 Unknown History sprinkle extended release 12hr(DON'T CRUSH) (Xtampza ER) Allergy/AdvReac Type Severity Reaction Status Date / Time cephalexin (From Keflex) Allergy Severe Anaphylaxis Verified 11/12/23 12:04 latex Allergy Rash Verified 11/12/23 12:04 Social History Smoking Status: Former smoker Physical Exam Const alert, oriented x3 and no apparent distress General Appearance: cooperative HEENT normocephalic, head/scalp atraumatic and external ears normal Eyes EOMs intact bilaterally General Eye: normal appearance of both eyes Neck full ROM General: normal visual inspection and trachea midline Resp Effort and Inspection: able to speak in complete sentences; Negative for labored, stridor or audible wheezes Cardio regular rate Rate: tachycardic Extremity Extremity Narrative: LLE with mild edema compared to RLE Skin no rashes or lesions noted Neuro oriented x3 and CN's II-XII intact bilaterally Neuro Narrative: severe bilateral lower extremity weakness Speech: speech normal Psych mental status grossly normal Appearance: grossly normal Attitude: calm and engaged Activity / Motor Behavior: appropriate eye contact Speech: normal speech Judgement: judgement good Lab / Micro Data 11/23/23 05:20 11/23/23 05:20 Labs: Laboratory Results - last 24 hr 11/22/23 21:35: WBC 17.8 H, RBC 5.54, Hgb 15.1, Hct 47.1, MCV 85.0, MCH 27.3, MCHC 32.1, RDW Std Deviation 42.1, RDW Coeff of Darcy 13.5, Plt Count 354, MPV 10.4, Immature Gran % (Auto) 0.600, Neut % (Auto) 83.3 H, Lymph % (Auto) 9.1 L, Shoshone % (Auto) 6.7, Eos % (Auto) 0.0, Baso % (Auto) 0.3, Absolute Neuts (auto) 14.8 H, Absolute Lymphs (auto) 1.62, Nucleated RBC % 0, PT 26.7 H, INR 2.5, APTT 54.4 H, Sodium Cancelled, Potassium Cancelled, Chloride Cancelled, Carbon Dioxide Cancelled, Anion Gap Cancelled, BUN Cancelled, Creatinine Cancelled, Estim Creat Clear Calc Cancelled, Est GFR (MDRD) Af Amer Cancelled, Est GFR (MDRD) Non-Af Cancelled, BUN/Creatinine Ratio Cancelled, Glucose Cancelled, Hemoglobin A1c 6.6 H, Calcium Cancelled, Total Bilirubin Cancelled, AST Cancelled, ALT Cancelled, Alkaline Phosphatase Cancelled, Total Protein Cancelled, Albumin Cancelled, Globulin Cancelled, Albumin/Globulin Ratio Cancelled, Blood Type O POSITIVE, Antibody Screen NEGATIVE, Crossmatch See Detail 11/22/23 23:09: Sodium Cancelled, Potassium Cancelled, Chloride Cancelled, Carbon Dioxide Cancelled, Anion Gap Cancelled, BUN Cancelled, Creatinine Cancelled, Estim Creat Clear Calc Cancelled, Est GFR (MDRD) Af Amer Cancelled, Est GFR (MDRD) Non-Af Cancelled, BUN/Creatinine Ratio Cancelled, Glucose Cancelled, Calcium Cancelled, Total Bilirubin Cancelled, AST Cancelled, ALT Cancelled, Alkaline Phosphatase Cancelled, Total Protein Cancelled, Albumin Cancelled, Globulin Cancelled, Albumin/Globulin Ratio Cancelled 11/23/23 00:10: Sodium 127 L, Potassium 3.9, Chloride 98, Carbon Dioxide 18.0 L, Anion Gap 11, BUN 32 H, Creatinine 1.08, Estim Creat Clear Calc 75.46, Est GFR (MDRD) Af Amer 91, Est GFR (MDRD) Non-Af 75, BUN/Creatinine Ratio 29.6 H, Glucose 329 H, Calcium 8.6, Total Bilirubin 0.50, AST 46 H, ALT 65 H, Alkaline Phosphatase 95, Total Protein 6.3 L, Albumin 3.0 L, Globulin 3.3, Albumin/Globulin Ratio 0.9 11/23/23 04:40: Urine Color Yellow, Urine Clarity Cloudy, Urine pH 6.0, Ur Specific Cypress 1.015, Urine Protein 30 H, Urine Glucose (UA) 1000 H, Urine Ketones Negative, Urine Occult Blood 50 H, Urine Nitrite Positive H, Urine Bilirubin Negative, Urine Urobilinogen Normal, Ur Leukocyte Esterase 500 H, Urine RBC 0-5 SEEN, Urine WBC 50-100 SEEN, Ur Squamous Epith Cells 0-5 SEEN, Urine Bacteria 3+, Urine Mucus 0 SEEN, Urine Yeast 2+, Urine Osmolality 763, Ur Random Sodium 11 11/23/23 05:20: WBC 16.3 H, RBC 5.73, Hgb 15.7, Hct 47.7, MCV 83.2, MCH 27.4, MCHC 32.9, RDW Std Deviation 41.2, RDW Coeff of Darcy 13.6, Plt Count 320, MPV 10.5, Sodium 131 L, Potassium 4.6, Chloride 98, Carbon Dioxide 19.0 L, Anion Gap 14, BUN 31 H, Creatinine 1.11, Estim Creat Clear Calc 73.42, Est GFR (MDRD) Af Amer 88, Est GFR (MDRD) Non-Af 73, BUN/Creatinine Ratio 27.9 H, Glucose 271 H, Calcium 8.6 11/23/23 06:30: POC Glucose 249 H 11/23/23 06:53: Serum Osmolality 309 H Micro: Microbiology 11/23/23 01:40 Stool Stool Occult Blood (LETICIA) - Final Occult Blood Positive Imaging Radiology Impression Abdomen/Pelvis CT 11/22/23 21:56 IMPRESSION: No acute finding in the abdomen or pelvis. No inflammatory change. Electronically Signed: Sourav Soares MD at 23:13 EDT ,
--- NOTE | 2023-11-23 08:50 | NURSING ---
ring remmoved to rt finger d/t iv infiltration and mod edema. placed in cup and locked in med drawer
--- NOTE | 2023-11-23 09:12 | CASEMGMT ---
Insurance review for hospitals In-network with [facility] insurance if transfer is recommended is as follows: [facility], [place], [facility], [facility], [facility], [facility], [facility] ([facility]), [facility], [facility], and . Rosie Anderson, Discharge Planning Asst.
--- NOTE | 2023-11-23 09:24 | OP.PCM_ITS ---
Report of Operation Date of Procedure: 11/23/23 Pre-Operative Diagnosis: DVT, GI bleed Post-Operative Diagnosis: same Surgery/Procedure Performed:: Insertion IVC filter Surgeon: Terrance High Type of Anesthesia: Local and Sedation,Conscious Estimated Blood Loss (mL): 1 Description of Procedure: HPI: Patient is a 58-year-old male with recent acute deep venous thrombosis that was very extensive and unprovoked. He was placed on anticoagulation and he presents now with dark stools and coffee-ground emesis. He is taken now for inferior vena cava filter placement. Description of procedure: Upon obtaining informed consent and verification correct patient procedure site patient taken to the [facility] where he was positioned prepped and draped in usual sterile fashion. Time was performed consultation administered Versed and fentanyl. Skin overlying the right jugular vein was anesthetized 1% lidocaine the vessel accessed under ultrasound guidance with micropuncture needle wire. Was then exchanged for micropuncture sheath through which a J-wire was advanced traversing the superior vena cava, right atrium into the inferior vena cava. The micropuncture sheath was then exchanged for an Omni Flush catheter advanced over the wire and positioned in the inferior vena cava. Injection subtraction angiography of the inferior vena cava was performed which confirmed normal caliber patent IVC and revealed the confluence of the renal veins. The wire was then readvanced and the pigtail exchanged for the 10 Yi dilator to dilate the subcutaneous tract which was then exchanged for the [employer] [place] delivery sheath. This advanced over the wire and positioned below the lowest renal vein and the filter advanced and then deployed. Completion venography confirmed satisfactory position with no tilt. The sheath was withdrawn and manual pressure held and hemostasis noted. The patient then returned to the PCU.
[2023-11-23] MEDS: morphine SR 15 MG Tablet 30 MG PO (09:45)
[2023-11-23] MEDS: Pantoprazole Sodium 40 MG in 0.9% Normal Saline (100mL MB+) 100 ML 330 MG IV ×2 (09:46→21:03)
[2023-11-23] MEDS: ARIPiprazole 10 MG Tablet PO (09:46)
[2023-11-23] MEDS: Venlafaxine XR 37.5 MG Capsule PO (09:46)
--- NOTE | 2023-11-23 10:15 | CASEMGMT ---
RN?CM?EDUCATION SITE MANAGER?CM?to room to meet with patient for initial transition planning/care coordination?assessment.?RN?CM?introduced self and role at [facility].? Pt voices understanding and consents to?assessment?at this time.? Pt resting in bed in no distress at this time.? Pt is A/O at this time and answers all questions appropriately.?? Care providers, pharmacy, and demographics verified/updated at this time. PCP: Dr Jocelynn Blue in [place] Specialists: Dr High, vascular. Pt has upcoming appt w/him. Pt sees pain mgnt in [place] (does not remember his name) and sees a PA, Ronald, urologist, but does not remember city where Ronald is located. [facility] Insurance: JODIE Browning Prescription Benefit:?yes Living Will/HPOA:?Pt does not currently have LW/HCPOA and would like to complete, stating he would like his sig other/girlfriend, Harmony, to be his HCPOA. Pt made aware if SW unavailable to meet w/him to complete AD while he is in [facility], that he can complete this as an OP. Fifi MEEKS, made aware. LNOK: Pt states he has no children and his parents are . He has one sibling/sister, Karly Lorenz, who lives in [place], [place]. Harmony, sig other/girlfriend, is the only contact listed and he states he does not want his sister to be added on his contact list. He states his sister does not know he is in the hospital and that Harmony would know how to get in contact w/her, if needed. Pt states he just met Harmony 3 months ago and he moved in w/her 3 months ago as well. He lived in [place] prior to that. He states he met Harmony through a college friend of his, who Harmony helps to take care of. Fifi MEEKS, nino aware. Living Arrangements: Pt lives w/Harmony (see above) in a one-story home w/5 steps to enter. He states is trying to get a ramp entrance installed through [facility]. He states Harmony takes care of him and helps w/bathing/dressing him and all other home mgnt tasks. Pt states he is able to toilet himself and manages his own medications. He straight caths himself 5 x's/day and gets the supplies delivered to his home, (does not remember name of company). He states he did have a CM in [facility] and qualified for 95 hrs of aide services. He is currently working w/a CM in [facility] (where he now resides) to get established there, but states they need to close me in [facility] before I can get be opened in [facility]. He states he is also working on setting it up for Harmony to get paid to take care of him, stating that she is a test kitchen home economist and does that for a living. CONSTANTINO Calxi, made aware of above. Transportation:?[employer] DME: States has the following DME:?shower chair, BSC (uses on occasion), power W/C, medical alert, cath supplies that come in via mail. Pt is diabetic, but states does not have a glucometer. He states he just ordered an elliptical machine to use @ home. Pt states no need for further DME at this time.? HHC/SNF: Pt has been to a SNF in [place] and had HHC years ago. He declines need for HHC or OP therapy, stating Harmony is able to provide all care needed @ ca. Pt wishes to return home and states has no concerns with going home at time of discharge.? CM?to follow for any further discharge planning/needs.? Pt voices no further concerns/needs at this time.? Advised pt to ask for?CM?if any further questions/concerns/needs arise.? Voices understanding. PLAN:??Home Darrell BSN?RN?CM
[2023-11-23 11:56] LABS: Bedside Glucose 216 mg/dL (74-106)
--- NOTE | 2023-11-23 11:56 | PRE.ANES_ITS ---
ASA Classification* ASA Classification ASA Classification: 3 and E Assessment & Plan Anesthesia* Anesthesia Assessment Anesthesia Assessment: Discussed sedation and/or anesthesia options, risks, benefits, and alternatives with patient/parents/legal guardian/POA. Questions invited. The patient/parents/legal guardian/POA seems to understand and agrees to proceed with anesthesia plan. Reviewed the physical assessment, medical history, allergy history and patient home medications list prior to surgery/procedure/anesthetic and documented any changes. Performed airway and anesthesia risk assessments. Anesthesia Type Anesthesia Type: MAC Pre-Assessment Diagnosis/Proposed Procedure Planned Operative Procedure(s): egd Anesthesia History Anesthesia History - entry level manager: Anesthesia History - entry level manager Hx Hospitalization Any Problems With Anesthesia No 11/23/23 02:03 Cholinesterase deficiency No 11/23/23 02:03 You/Your Family Experience No 11/23/23 02:03 fever (hyperthermia) with Relationship Recent Exposure to Contagious No 11/23/23 02:03 Disease Does patient have nerve No 11/23/23 02:03 stimulator Patient instructed to have No 11/23/23 02:03 device shut off --Does patient have Pacemaker No 11/23/23 11:46 or ICD? When Was Last Pacemaker Check QUESTION #4 FULL TEXT: You/Your Family Experience fever (hyperthermia) with Anesthesia Last Oral Intake Last Oral intake: Last Oral Intake NPO since 00:00 11/23/23 11:46 Meds taken in AM with sips of Yes 11/23/23 11:46 water? Meds patient instructed to cathy lindsey, ms contin 11/23/23 11:46 take am of surgery PONV PONV - entry level manager: PONV - entry level manager Female HX of Motion Sickness HX of N/V After Surgery Non-Smoker Duration of Surgery greater than 60 minutes Number of Risk Factors PONV Score Height & Weight Height & Weight: Anesthesia: Height & Weight Height 5 ft 9 in 11/23/23 11:46 Weight: 75.6 kg 11/23/23 11:46 Body Mass Index (BMI) 24.6 11/23/23 11:46 Respiratory Assessment Respiratory Assessment - entry level manager: Respiratory Tract Infection Hx - entry level manager Hx Respiratory Tract Infection No 11/23/23 02:03 STOP Sleep Apnea STOP Sleep Apnea - entry level manager: STOP Sleep Apnea - entry level manager Hx Hypertension Yes 11/23/23 00:45 Hx Sleep Apnea No 11/23/23 00:45 CPAP BIPAP Do you snore loudly (louder No 11/23/23 00:45 than talking or can be heard Do you often feel tired/ No 11/23/23 00:45 fatigued/ sleepy during daytime? Has anyone observed you stop No 11/23/23 00:45 breathing during sleep? STOP Results Negative 11/23/23 00:45 QUESTION #5 FULL TEXT : Do you snore loudly (louder than talking or can be heard through closed doors)? 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 Specify any problems Hx of Preganancy in last 3 N/A 11/23/23 00:45 Months Nurse Filling Out Transfusion [id number] 11/23/23 00:45 & Questions: Date: 11/23/23 11/23/23 00:45 Time: 00:47 11/23/23 00:45 Patient unable to answer at this time (ie. confused, unrespo /Reproduction History /Reproductive History - entry level manager: /Reproductive Hx- entry level manager Hx Now No 11/23/23 02:03 Gestational Age (in weeks): EDC: Hx Hx Para Hx Section SAB No 11/23/23 02:03 Active Medications Active Medications: Current Medications Generic Name Dose Route Start Last Admin Trade Name Freq PRN Reason Stop Dose Admin Acetaminophen 650 mg 11/23/23 00:28 11/23/23 04:20 Acetaminophen 325 Mg Tablet PO 650 mg Q6H PRN PRN Administration Pain 1-10 Or Fever>100.7 Aripiprazole 10 mg 11/23/23 10:00 11/23/23 09:46 Aripiprazole 10 Mg Tablet PO 10 mg DAILY IAN Administration Protocol Atorvastatin Calcium 40 mg 11/23/23 22:00 Atorvastatin Calcium 40 Mg Tablet PO QHS IAN Calamine/Phenol 1 applic 11/23/23 06:00 11/23/23 06:46 Menthol/Lanolin/Calamine/Znox 113 Gm Tube TOPICAL 1 applic TID IAN Administration Protocol Dextrose 0 gm 11/23/23 02:13 Dextrose 50%-Water 25 Gm/50 Ml Disp.Syrin IV X1 PRN Hypoglycemia Protocol Glucagon 1 mg 11/23/23 02:13 Glucagon 1 Mg/Ml Syringe IM X1 PRN Hypoglycemia Lactated Ringer's 1,000 mls @ 100 mls/hr 11/23/23 01:00 11/23/23 01:52 IV 100 mls/hr .Q10H IAN Administration Pantoprazole Sodium 40 mg/ 110 mls @ 330 mls/hr 11/23/23 10:00 11/23/23 10:22 Sodium Chloride IV Infused Q12 IAN Infusion Sodium Chloride 250 mls @ 15 mls/hr 11/23/23 00:49 IV .[id number] PRN Additional IVPB Infusion Sodium Chloride 250 mls @ 15 mls/hr 11/23/23 00:49 IV .[id number] PRN Saline Flush Sodium Chloride 1,000 mls @ 15 mls/hr 11/23/23 08:10 11/23/23 10:22 IV Not Given .Q48H [facility] Insulin Human Lispro 0 unit 11/23/23 07:00 11/23/23 11:44 Insulin Lispro 100 Unit/Ml Insuln.Pen SC Not Given ACHS [facility] Protocol Melatonin 3 mg 11/23/23 00:28 Melatonin 3 Mg Tablet PO QHS PRN PRN INSOMNIA Morphine Sulfate 30 mg 11/23/23 10:00 11/23/23 09:45 Morphine Sr 15 Mg Tablet PO 30 mg DAILY IAN Administration Ondansetron HCl 4 mg 11/23/23 10:56 11/23/23 11:07 Ondansetron 4 Mg/2 Ml Vial IV 4 mg Q6H PRN PRN Administration NAUSEA/VOMITING Oxycodone HCl 10 mg 11/23/23 01:07 11/23/23 04:21 Oxycodone 5 Mg Tablet PO 10 mg Q6H PRN PRN Administration Pain Score 6-10 Sucralfate 1 gm 11/23/23 07:00 11/23/23 11:44 Sucralfate 1 Gm Tablet PO Not Given 0700,1100,1600 IAN Venlafaxine HCl 37.5 mg 11/23/23 10:00 11/23/23 09:46 Venlafaxine Xr 37.5 Mg Capsule PO 37.5 mg DAILY IAN Administration Anesthesia Focused Assessment* Temperature: 98.5 F Pulse Rate: 121 Blood Pressure: 132/83 Respiratory Rate: 16 Pulse Ox: 97 Oxygen Flow Rate (L/min): 2 Airway Assessment Mouth opens: >3 cm Mallampati Score: II Focused Labs Anesthesia Preop lab: CBC WBC 16.3 K/mm3 (4.4-11.0) H 11/23/23 05:20 RBC 5.73 M/mm3 (4.6-6.2) 11/23/23 05:20 Hgb 15.7 g/dL (13.0-16.5) 11/23/23 05:20 Hct 47.7 % (40-54) 11/23/23 05:20 Plt Count 320 K/mm3 (150-450) 11/23/23 05:20 CHEMISTRY Potassium 4.6 mmol/L (3.5-5.1) 11/23/23 05:20 Sodium 131 mmol/L (136-145) L 11/23/23 05:20 BUN 31 mg/dL (7-18) H 11/23/23 05:20 Creatinine 1.11 mg/dL (0.70-1.30) 11/23/23 05:20 Glucose 271 mg/dL (74-106) H 11/23/23 05:20 COAG PT 26.7 SECONDS (11.7-14.9) H 11/22/23 21:35 Review of Systems (Anesthesia) ROS Narrative System reviewed and no additional complaints, except as documented. [facility] Medical History Hx of gastroesophageal reflux (GERD) PTSD (post-traumatic stress disorder) Prediabetes Anxiety and depression Paraplegia Home Medications ?Medication ?Instructions ?Recorded ?Last Taken ?Type cephalexin 500 mg capsule 500 mg PO Q12 #14 CAPSULES 10/13/23 Unknown Rx ciprofloxacin HCl 500 mg tablet 500 mg PO BID #14 tabs 10/25/23 Unknown Rx (Cipro) aripiprazole 10 mg tablet 10 mg PO DAILY 11/03/23 Unknown History atorvastatin 40 mg tablet 40 mg PO QHS 11/03/23 Unknown History ciprofloxacin HCl 250 mg tablet 250 mg PO BID 11/03/23 Unknown History desvenlafaxine succinate 50 mg 50 mg PO DAILY 11/03/23 Unknown History tablet,extended release 24 hr empagliflozin 25 mg tablet 25 mg PO .once 11/03/23 Unknown History (Jardiance) guanfacine 1 mg tablet,extended 1 mg PO QPM 11/03/23 Unknown History release 24 hr midodrine 5 mg tablet 5 mg PO DAILY 11/03/23 Unknown History morphine 30 mg capsule,extended 30 mg PO DAILY 11/03/23 Unknown History release pellets ondansetron 4 mg disintegrating 4 mg PO Q8H PRN PRN Nausea #10 tabs 11/03/23 Unknown Rx tablet oxycodone-acetaminophen 10 mg-325 1 tab PO Q6H PRN PRN severe pain 11/03/23 Unknown History mg tablet sucralfate 1 gram tablet (Carafate) 1 g PO TID 7 days #21 tabs 11/03/23 Unknown Rx famotidine 20 mg tablet (Pepcid) 20 mg PO DAILY PRN epigastric pain 11/11/23 Unknown Rx #20 tabs omeprazole 40 mg capsule,delayed 40 mg PO BID 11/11/23 Unknown History release sucralfate 100 mg/mL oral 10 ml PO BID #300 mL 11/11/23 Unknown Rx suspension (Carafate) rivaroxaban 15 mg (42)-20 mg (9) See Rx Instructions PO .COMPLEX 11/12/23 Unknow n Rx tablets in a starter pack (Xarelto #51 tabs DVT-PE Treatment 30-Day Starter) nitrofurantoin 100 mg PO Q12H 7 days #14 caps 11/13/23 Unknown Rx monohydrate/macrocrystals 100 mg capsule (Macrobid) oxycodone myristate 18 mg capsule 18 mg PO BID 11/22/23 Unknown History sprinkle extended release 12hr(DON'T CRUSH) (Xtampza ER) Allergy/AdvReac Type Severity Reaction Status Date / Time cephalexin (From Keflex) Allergy Severe Anaphylaxis Verified 11/12/23 12:04 latex Allergy Rash Verified 11/12/23 12:04 Social History Smoking Status: Former smoker
[2023-11-23] MEDS: Lactated Ringers 1,000 ML 15 ML IV (12:08)
--- NOTE | 2023-11-23 12:48 | CON.PCM.GI_ITS ---
HPI Consult Data Date of Consult: 11/23/23 HPI Narrative Reason for Consultation: GI bleed HPI Narrative: ARTHUR STINSON, is a 58 M who presents with coffee-ground emesis. He was recently diagnosed with a DVT on Coumadin. 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 Patient states the last 2 days he has had coffee-ground emesis. Never had a GI bleed before. States is also having black stool. This all began around Sunday. Complaining of some lower abdominal pain. He was seen in the ED on 11/11 for worsening left lower extremity edema. Was found on ultrasound to have acute DVT in the left common femoral vein, femoral vein, popliteal vein and tibioperoneal vein. He was started on Xarelto. Patient is scheduled for that appointment with Dr. High in about 1 week, has not seen him yet. Patient was switched to Coumadin shortly after starting Xarelto for unclear reasons. Has been taking Coumadin as prescribed. INR was 2.5 on arrival here. Patient and girlfriend state that he began to have episodes of vomiting with coffee-ground emesis about 2 days ago. These episodes significantly worsened earlier today and he was unable to keep any food or drink down so they came to the ED for further evaluation. He also reports having some loose stools that appear darker than normal. No bright red blood in stools. Patient currently reports mild abdominal pain and mild nausea but denies any other acute concerns. Denies any fevers or chills. Notably, patient was also seen in the ED on 11/10 for dyspepsia and nausea with vomiting. Was noted that he was already on omeprazole 40 mg twice daily at that time as well as Carafate with meals and Zofran as needed. [facility] Medical History Hx of gastroesophageal reflux (GERD) PTSD (post-traumatic stress disorder) Prediabetes Anxiety and depression Paraplegia Home Medications ?Medication ?Instructions ?Recorded ?Last Taken ?Type cephalexin 500 mg capsule 500 mg PO Q12 #14 CAPSULES 10/13/23 Unknown Rx ciprofloxacin HCl 500 mg tablet 500 mg PO BID #14 tabs 10/25/23 Unknown Rx (Cipro) aripiprazole 10 mg tablet 10 mg PO DAILY 11/03/23 Unknown History atorvastatin 40 mg tablet 40 mg PO QHS 11/03/23 Unknown History ciprofloxacin HCl 250 mg tablet 250 mg PO BID 11/03/23 Unknown History desvenlafaxine succinate 50 mg 50 mg PO DAILY 11/03/23 Unknown History tablet,extended release 24 hr empagliflozin 25 mg tablet 25 mg PO .once 11/03/23 Unknown History (Jardiance) guanfacine 1 mg tablet,extended 1 mg PO QPM 11/03/23 Unknown History release 24 hr midodrine 5 mg tablet 5 mg PO DAILY 11/03/23 Unknown History morphine 30 mg capsule,extended 30 mg PO DAILY 11/03/23 Unknown History release pellets ondansetron 4 mg disintegrating 4 mg PO Q8H PRN PRN Nausea #10 tabs 11/03/23 Unknown Rx tablet oxycodone-acetaminophen 10 mg-325 1 tab PO Q6H PRN PRN severe pain 11/03/23 Unknown History mg tablet sucralfate 1 gram tablet (Carafate) 1 g PO TID 7 days #21 tabs 11/03/23 Unknown Rx famotidine 20 mg tablet (Pepcid) 20 mg PO DAILY PRN epigastric pain 11/11/23 Unknown Rx #20 tabs omeprazole 40 mg capsule,delayed 40 mg PO BID 11/11/23 Unknown History release sucralfate 100 mg/mL oral 10 ml PO BID #300 mL 11/11/23 Unknown Rx suspension (Carafate) rivaroxaban 15 mg (42)-20 mg (9) See Rx Instructions PO .COMPLEX 11/12/23 Unknown Rx tablets in a starter pack (Xarelto #51 tabs DVT-PE Treatment 30-Day Starter) nitrofurantoin 100 mg PO Q12H 7 days #14 caps 11/13/23 Unknown Rx monohydrate/macrocrystals 100 mg capsule (Macrobid) oxycodone myristate 18 mg capsule 18 mg PO BID 11/22/23 Unknown History sprinkle extended release 12hr(DON'T CRUSH) (Xtampza ER) Allergy/AdvReac Type Severity Reaction Status Date / Time cephalexin (From Keflex) Allergy Severe Anaphylaxis Verified 11/23/23 12:09 latex Allergy Rash Verified 11/23/23 12:09 Social History Smoking Status: Former smoker ROS Constitutional Constitutional: Reports fatigue; Denies chills or fever(s) Eyes Eyes: Denies change in vision Cardiovascular Cardiovascular: Denies chest pain, dyspnea on exertion, edema, lightheadedness, palpitations or rapid heart rate Respiratory/Chest Respiratory/Chest: Denies cough, shortness of breath at rest or wheezing Gastrointestinal Gastrointestinal: Reports abdominal pain, coffee ground emesis, diarrhea, dyspepsia, melena, nausea and vomiting; Denies constipation Genitourinary Genitourinary: Denies dysuria Musculoskeletal Musculoskeletal: Denies arthralgias or myalgias Neurologic Neurologic: Denies dizziness, focal weakness or headache(s) Physical Exam Const alert, oriented x3 and no apparent distress General Appearance: cooperative HEENT normocephalic, head/scalp atraumatic and external ears normal Eyes EOMs intact bilaterally General Eye: normal appearance of both eyes Neck full ROM General: normal visual inspection and trachea midline Resp Effort and Inspection: able to speak in complete sentences; Negative for labored, stridor or audible wheezes Cardio regular rate Rate: tachycardic Extremity Extremity Narrative: LLE with mild edema compared to RLE Skin no rashes or lesions noted Neuro oriented x3 and CN's II-XII intact bilaterally Neuro Narrative: severe bilateral lower extremity weakness Speech: speech normal Psych mental status grossly normal Appearance: grossly normal Attitude: calm and engaged Activity / Motor Behavior: appropriate eye contact Speech: normal speech Judgement: judgement good Lab / Micro Data 11/23/23 05:20 11/23/23 05:20 Labs: Laboratory Results - last 24 hr 11/22/23 21:35: WBC 17.8 H, RBC 5.54, Hgb 15.1, Hct 47.1, MCV 85.0, MCH 27.3, MCHC 32.1, RDW Std Deviation 42.1, RDW Coeff of Darcy 13.5, Plt Count 354, MPV 10.4, Immature Gran % (Auto) 0.600, Neut % (Auto) 83.3 H, Lymph % (Auto) 9.1 L, [place] % (Auto) 6.7, Eos % (Auto) 0.0, Baso % (Auto) 0.3, Absolute Neuts (auto) 14.8 H, Absolute Lymphs (auto) 1.62, Nucleated RBC % 0, PT 26.7 H, INR 2.5, APTT 54.4 H, Sodium Cancelled, Potassium Cancelled, Chloride Cancelled, Carbon Dioxide Cancelled, Anion Gap Cancelled, BUN Cancelled, Creatinine Cancelled, Estim Creat Clear Calc Cancelled, Est GFR (MDRD) Af Amer Cancelled, Est GFR (MDRD) Non-Af Cancelled, BUN/Creatinine Ratio Cancelled, Glucose Cancelled, H emoglobin A1c 6.6 H, Calcium Cancelled, Total Bilirubin Cancelled, AST Cancelled, ALT Cancelled, Alkaline Phosphatase Cancelled, Total Protein Cancelled, Albumin Cancelled, Globulin Cancelled, Albumin/Globulin Ratio Cancelled, Blood Type O POSITIVE, Antibody Screen NEGATIVE, Crossmatch See Detail 11/22/23 23:09: Sodium Cancelled, Potassium Cancelled, Chloride Cancelled, Carbon Dioxide Cancelled, Anion Gap Cancelled, BUN Cancelled, Creatinine Cancelled, Estim Creat Clear Calc Cancelled, Est GFR (MDRD) Af Amer Cancelled, Est GFR (MDRD) Non-Af Cancelled, BUN/Creatinine Ratio Cancelled, Glucose Cancelled, Calcium Cancelled, Total Bilirubin Cancelled, AST Cancelled, ALT Cancelled, Alkaline Phosphatase Cancelled, Total Protein Cancelled, Albumin Cancelled, Globulin Cancelled, Albumin/Globulin Ratio Cancelled 11/23/23 00:10: Sodium 127 L, Potassium 3.9, Chloride 98, Carbon Dioxide 18.0 L, Anion Gap 11, BUN 32 H, Creatinine 1.08, Estim Creat Clear Calc 75.46, Est GFR (MDRD) Af Amer 91, Est GFR (MDRD) Non-Af 75, BUN/Creatinine Ratio 29.6 H, G lucose 329 H, Calcium 8.6, Total Bilirubin 0.50, AST 46 H, ALT 65 H, Alkaline Phosphatase 95, Total Protein 6.3 L, Albumin 3.0 L, Globulin 3.3, Albumin/Globulin Ratio 0.9 11/23/23 04:40: Urine Color Yellow, Urine Clarity Cloudy, Urine pH 6.0, Ur Specific [place] 1.015, Urine Protein 30 H, Urine Glucose (UA) 1000 H, Urine Ketones Negative, Urine Occult Blood 50 H, Urine Nitrite Positive H, Urine Bilirubin Negative, Urine Urobilinogen Normal, Ur Leukocyte Esterase 500 H, Urine RBC 0-5 SEEN, Urine WBC 50-100 SEEN, Ur Squamous Epith Cells 0-5 SEEN, Urine Bacteria 3+, Urine Mucus 0 SEEN, Urine Yeast 2+, Urine Osmolality 763, Ur Random Sodium 11 11/23/23 05:20: WBC 16.3 H, RBC 5.73, Hgb 15.7, Hct 47.7, MCV 83.2, MCH 27.4, MCHC 32.9, RDW Std Deviation 41.2, RDW Coeff of Darcy 13.6, Plt Count 320, MPV 10.5, Sodium 131 L, Potassium 4.6, Chloride 98, Carbon Dioxide 19.0 L, Anion Gap 14, BUN 31 H, Creatinine 1.11, Estim Creat Clear Calc 73.42, Est GFR (MDRD) Af Amer 88, Est GFR (MDRD) Non-Af 73, BUN/Creatinine Ratio 27.9 H, Glucose 271 H, Calcium 8.6 11/23/23 06:30: POC Glucose 249 H 11/23/23 06:53: Serum Osmolality 309 H 11/23/23 11:36: POC Glucose 216 H Micro: Microbiology 11/23/23 01:40 Stool Stool Occult Blood (LETICIA) - Final Occult Blood Positive Imaging Radiology Impression Abdomen/Pelvis CT 11/22/23 21:56 IMPRESSION: No acute finding in the abdomen or pelvis. No inflammatory change. Electronically Signed: Sourav Soares MD at 23:13 EDT Reading Location ID and State: [address] [place] [address] Tel , Service support , Assessment & Plan Assessment/Plan (1) Acute upper GI bleed: (2) History of deep vein thrombosis: (3) Chronic anticoagulation: (4) Hyponatremia: (5) Dehydration: PLAN: Plan Patient is a 58-year-old male who presented [facility] ED on 11/22/2023 with coffee-ground emesis and dark stools. Suspected upper GI bleed, secondary to possible Bridget-Ruby tear, peptic ulcer disease, erosive esophagitis in the setting of anticoagulation. He should undergo an upper endoscopy. He was explained alternatives, risk, benefits including outstanding bleeding, infection, sepsis, perforation, need for return to . He will have an ASA of 3. Continue to hold home Coumadin; Charges/Coding Visit Charges Inpatient E&M: 31254 Init Hosp L3
--- NOTE | 2023-11-23 13:05 | PCM.POST.ANE ---
Anesthesia: Postop Eval I Current Vital Signs Temperature: 98.2 F Pulse Rate: 107 Blood Pressure: 102/65 Respiratory Rate: 18 Pulse Ox: 93 Oxygen Delivery Method: Room Air Assessment Airway patent: Yes Spontaneous unlabored respirations: Yes Mental status: Asleep nausea: No Vomiting: No Anesthesia Complication: No Fluid Hydration Crystalloid volume administer (ml): 400 Total IV fluid infused: 400 Progress Note Anesthesia document: Postop Eval 1 completed: Yes
--- NOTE | 2023-11-23 13:05 | OP.CCLET_ITS ---
11/23/2023 Jocelynn Blue Md Re : Upper GI endoscopy procedure for Terry Knox Dear Dr. Blue This procedure was performed on Thursday, November 23, 2023. My impressions and recommendations are as follows: Impressions : - LA Grade D erosive esophagitis with bleeding. Biopsied. Treated with a heater probe. - Small hiatal hernia. - Non-bleeding duodenal ulcer. Recommendations : - Discharge patient to home. - Full liquid diet. - Continue present medications. - Await pathology results. My findings are described in the full procedure note, which is enclosed. If I can be of further assistance, please feel free to contact me at . Sincerely, Ponce Ordonez, 11/23/2023 1:04:49 PM This report has been signed electronically.
--- NOTE | 2023-11-23 13:05 | OP.EGD_ITS ---
Patient Name: Terry Knox Procedure Date: 11/23/2023 12:42 PM Date of : 1965 Age: 58 Procedure: Upper GI endoscopy Indications: Hematemesis Providers: Ponce Ordonez DO Medicines: Monitored Anesthesia Care Patient Profile: This is a 58 year old male. Refer to note in patient chart for documentation of history and physical. Patient has symptoms of chronic vomiting. Complications: No immediate complications. Procedure: Pre-Anesthesia Assessment: - Prior to the procedure, a History and Physical was performed, and patient medications and allergies were reviewed. The patient is competent. The risks and benefits of the procedure and the sedation options and risks were discussed with the patient. All questions were answered and informed consent was obtained. Patient identification and proposed procedure were verified by the physician in the pre-procedure area. Mental Status Examination: alert and oriented. Airway Examination: normal oropharyngeal airway and neck mobility. Respiratory Examination: clear to auscultation. CV Examination: normal. Prophylactic Antibiotics: The patient does not require prophylactic antibiotics. Prior Anticoagulants: The patient has taken no anticoagulant or antiplatelet agents. ASA Grade Assessment: IV - A patient with severe systemic disease that is a constant threat to life. After reviewing the risks and benefits, the patient was deemed in satisfactory condition to undergo the procedure. The anesthesia plan was to use monitored anesthesia care (MAC). Immediately prior to administration of medications, the patient was re-assessed for adequacy to receive sedatives. The heart rate, respiratory rate, oxygen saturations, blood pressure, adequacy of pulmonary ventilation, and response to care were monitored throughout the procedure. The physical status of the patient was re-assessed after the procedure. After obtaining informed consent, the endoscope was passed under direct vision. Throughout the procedure, the patient's blood pressure, pulse, and oxygen saturations were monitored continuously. The gastroscope was introduced through the mouth, and advanced to the second part of duodenum. The upper GI endoscopy was accomplished without difficulty. The patient tolerated the procedure well. Scope In: 12:54:29 PM Scope Out: 12:58:25 PM Total Procedure Duration Time 0 hours 3 minutes 56 seconds Findings: LA Grade D (one or more mucosal breaks involving at least 75% of esophageal circumference) esophagitis with bleeding was found 35 to 42 cm from the incisors. Biopsies were taken with a cold forceps for histology. Verification of patient identification for the specimen was done. Coagulation for hemostasis using heater probe was successful. Estimated blood loss was minimal. A small hiatal hernia was present. No other significant abnormalities were identified in a careful examination of the stomach. One non-bleeding linear duodenal ulcer was found in the duodenal bulb. The lesion was 5 mm in largest dimension. Impression: - LA Grade D erosive esophagitis with bleeding. Biopsied. Treated with a heater probe. - Small hiatal hernia. - Non-bleeding duodenal ulcer. Recommendation: - Discharge patient to home. - Full liquid diet. - Continue present medications. - Await pathology results. Procedure Code(s): --- Professional --- 65829, 59, Esophagogastroduodenoscopy, flexible, transoral; with control of bleeding, any method 38860, 51, Esophagogastroduodenoscopy, flexible, transoral; with biopsy, single or multiple CPT copyright 2021 [employer]. All rights reserved. The codes documented in this report are preliminary and upon dock superintendent review may be revised to meet current compliance requirements. Ponce Ordonez DO 11/23/2023 1:04:49 PM This report has been signed electronically. Number of Addenda: 0 Note Initiated On: 11/23/2023 12:42 PM
--- NOTE | 2023-11-23 13:54 | PCM.POSTANE2 ---
Anesthesia Postop Eval I Sum Postop Eval Completion status Anesthesia document: Postop Eval 1 completed: Yes Anesthesia Postop Eval I Summary Anesthesia Postop Eval I Summary: Anesthesia Postop Eval I: Assessment Summary Airway patent Yes 11/23/23 13:14 [email or web address] Spontaneous unlabored Yes 11/23/23 13:14 [email or web address] respirations Mental status Asleep 11/23/23 13:14 [email or web address] nausea No 11/23/23 13:14 [email or web address] Vomiting No 11/23/23 13:14 [email or web address] Anesthesia Postop Eval I: Fluid Summary Crystalloid volume administer 400 11/23/23 13:14 [email or web address] (ml) Colloids volume administered ( ml) Blood Product volume administered (ml) Total IV fluid infused 400 11/23/23 13:14 [email or web address] Anesthesia Postop Eval I: Summary Notes Anesthesia Complication No 11/23/23 13:14 [email or web address] Anesthesia Complication Comment: Post-operative progress note Anesthesia: Postop Eval II Evaluation Mental status: Awake and Calm Pain Level: 0 nausea: No Vomiting: No Complications Anesthesia Complication: No
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
[2023-11-23 15:50] LABS: International Normalized Ratio 1.5; Prothrombin Time (Protime)PT. 17.8 SECONDS (11.7-14.9)
[2023-11-23] MEDS: Sucralfate 1 GM Tablet PO (16:13)
[2023-11-23 16:20] LABS: Lipase 19 U/L (13-75)
[2023-11-23 16:34] LABS: Bedside Glucose 205 mg/dL (74-106)
[2023-11-23] MEDS: metFORMIN HCl 500 MG Tablet PO (16:57)
[2023-11-23] MEDS: Insulin Lispro 100 UNIT/ML INSULN.PEN SC ×2 (16:59→20:52)
[2023-11-23] MEDS: Atorvastatin Calcium 40 MG Tablet PO (20:46)
[2023-11-23] MEDS: Piperacil/Tazobactam 3.375 GM in 0.9% Normal Saline (50mL MB+) 50 ML IV (22:15)
[2023-11-23 23:44] LABS: Bedside Glucose 166 mg/dL (74-106)
[2023-11-24 04:32] VITALS: BP 110/77; PULSE 103; RESP 17; TEMP 37.1; O2SAT 95
[2023-11-24] MEDS: Piperacil/Tazobactam 3.375 GM in 0.9% Normal Saline (50mL MB+) 50 ML IV ×3 (05:54→21:40)
[2023-11-24] MEDS: Sucralfate 1 GM Tablet PO ×2 (05:56→16:36)
[2023-11-24 06:40] LABS: Bedside Glucose 137 mg/dL (74-106)
[2023-11-24] MEDS: Ondansetron 4 MG/2 ML Vial IV ×3 (08:24→23:26)
[2023-11-24] MEDS: 0.9% Saline Lock 10 ML Syringe IV ×4 (08:30→23:26)
[2023-11-24 09:31] VITALS: BP 120/69; PULSE 98; RESP 18; TEMP 36.4; O2SAT 96
[2023-11-24] MEDS: morphine SR 15 MG Tablet 30 MG PO (09:31)
[2023-11-24] MEDS: Pantoprazole Sodium 40 MG in 0.9% Normal Saline (100mL MB+) 100 ML 330 MG IV ×2 (09:32→20:18)
[2023-11-24] MEDS: ARIPiprazole 10 MG Tablet PO (09:32)
[2023-11-24] MEDS: Venlafaxine XR 37.5 MG Capsule PO (09:32)
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
[2023-11-24 12:01] LABS: Bedside Glucose 114 mg/dL (74-106)
[2023-11-24] MEDS: Acetaminophen 325 MG Tablet 650 MG PO (14:49)
[2023-11-24] MEDS: oxyCODONE 5 MG Tablet 10 MG PO (14:49)
[2023-11-24 15:30] VITALS: BP 111/60; PULSE 87; RESP 18; TEMP 36.6; O2SAT 98
[2023-11-24 16:58] LABS: Bedside Glucose 82 mg/dL (74-106)
[2023-11-24 21:10] VITALS: BP 122/67; PULSE 84; RESP 18; TEMP 36.9; O2SAT 96
[2023-11-24 22:01] LABS: Bedside Glucose 104 mg/dL (74-106)
[2023-11-25] VITALS (9 sets, daily range): BP systolic 106–124; BP diastolic 50–60; PULSE 72–91; RESP 18; TEMP 36.1–36.8; O2SAT 94–98
[2023-11-25 00:23] LABS: Absolute Lymphocyte Count 1.88 X10^3/uL (0.83-4.51); Absolute Neutrophil Count 4.7 X10^3/uL (2.0-7.7); Basophil# 0.01 X10^3/uL; Basophil% 0.1 % (0-1); Eosinophil# 0.08 X10^3/uL; Eosinophils% 1.1 % (0-5); Hematocrit 31.8 % (40-54); Hemoglobin 10.2 g/dL (13.0-16.5); Lymphocyte # 1.88 X10^3/ul (0.83-4.51); Lymphocyte % 25.6 % (19-41); Mean Corp Hgb Conc 32.1 g/dL (32-36); Mean Corpuscular Hgb 27.2 pg (27.0-32.0); Mean Corpuscular Volume 84.8 fL (80-94); Mean Platelet Vol. 10.6 fl (6.2-12.0); Monocyte# 0.59 X10^3/uL; NRBC Flagged by Analyzer 0 % (0-5); Neutrophil # 4.73 X10^3/uL (2.7-7.7); Neutrophil % 64.4 % (47-70); Platelet Count 261 K/mm3 (150-450); RBC Distribution Width CV 13.5 % (11.6-14.6); Red Blood Count 3.75 M/mm3 (4.6-6.2); White Blood Count 7.4 K/mm3 (4.4-11.0)
[2023-11-25] MEDS: proCHLORPERazine 10 MG/2 ML Vial 5 MG IV ×2 (00:47→15:01)
[2023-11-25] MEDS: Calcium Carbonate 500 MG Tablet PO ×3 (00:47→10:02)
[2023-11-25] MEDS: 0.9% Saline Lock 10 ML Syringe IV ×3 (00:47→15:01)
[2023-11-25 00:51] LABS: Anion Gap 10 (5-15); BUN 17 mg/dL (7-18); BUN/Creat Ratio 30.9 RATIO (10-20); Calcium,Total 7.7 mg/dL (8.5-10.1); Chloride 97 mmol/L (98-107); Creatinine, Serum 0.55 mg/dL (0.70-1.30); EST Glomerular Filtration Rate 163 mL/min (>60); Est Glom Filt Rate - Afr Amer 197 mL/min (>60); Estimated Creatinine Clearance 148.18 ml/min; Glucose 83 mg/dL (74-106); Potassium 3.4 mmol/L (3.5-5.1); Sodium Level 131 mmol/L (136-145)
[2023-11-25] MEDS: Piperacil/Tazobactam 3.375 GM in 0.9% Normal Saline (50mL MB+) 50 ML IV ×3 (05:10→21:09)
[2023-11-25] MEDS: oxyCODONE 5 MG Tablet 10 MG PO ×3 (05:34→21:08)
[2023-11-25] MEDS: Ondansetron 4 MG/2 ML Vial IV ×2 (05:35→20:39)
[2023-11-25 06:23] LABS: Absolute Lymphocyte Count 1.75 X10^3/uL (0.83-4.51); Absolute Neutrophil Count 3.9 X10^3/uL (2.0-7.7); Basophil# 0.01 X10^3/uL; Basophil% 0.2 % (0-1); Eosinophil# 0.06 X10^3/uL; Hematocrit 30.8 % (40-54); Lymphocyte # 1.75 X10^3/ul (0.83-4.51); Lymphocyte % 27.9 % (19-41); Mean Corp Hgb Conc 32.5 g/dL (32-36); Mean Corpuscular Hgb 27.7 pg (27.0-32.0); Mean Corpuscular Volume 85.3 fL (80-94); Mean Platelet Vol. 10.7 fl (6.2-12.0); Monocyte# 0.49 X10^3/uL; Monocyte% 7.8 % (0-10); NRBC Flagged by Analyzer 0 % (0-5); Neutrophil # 3.93 X10^3/uL (2.7-7.7); Neutrophil % 62.5 % (47-70); Platelet Count 271 K/mm3 (150-450); RBC Distribution Width CV 13.4 % (11.6-14.6); RBC Distribution Width SD 41.7 fl (35.1-43.9); Red Blood Count 3.61 M/mm3 (4.6-6.2); White Blood Count 6.3 K/mm3 (4.4-11.0)
[2023-11-25] MEDS: Sucralfate 1 GM Tablet PO ×3 (06:50→15:01)
[2023-11-25 06:51] LABS: Anion Gap 9 (5-15); BUN 15 mg/dL (7-18); BUN/Creat Ratio 23.3 RATIO (10-20); Chloride 97 mmol/L (98-107); Creatinine, Serum 0.64 mg/dL (0.70-1.30); EST Glomerular Filtration Rate 136 mL/min (>60); Est Glom Filt Rate - Afr Amer 165 mL/min (>60); Estimated Creatinine Clearance 127.35 ml/min; Glucose 80 mg/dL (74-106); Potassium 3.1 mmol/L (3.5-5.1); Sodium Level 131 mmol/L (136-145)
[2023-11-25 07:10] LABS: Bedside Glucose 79 mg/dL (74-106)
[2023-11-25] MEDS: KCL 40mEq in 0.9% NS 40 MEQ/1,000 ML IV.SOLN 125 MEQ IV ×2 (07:48→15:56)
[2023-11-25] MEDS: ARIPiprazole 10 MG Tablet PO (09:52)
[2023-11-25] MEDS: Venlafaxine XR 37.5 MG Capsule PO (09:52)
[2023-11-25] MEDS: morphine SR 15 MG Tablet 30 MG PO (09:52)
[2023-11-25] MEDS: Pantoprazole Sodium 40 MG in 0.9% Normal Saline (100mL MB+) 100 ML 330 MG IV ×2 (09:52→20:06)
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
[2023-11-25 12:02] LABS: Bedside Glucose 79 mg/dL (74-106)
[2023-11-25] MEDS: Acetaminophen 325 MG Tablet 650 MG PO (15:01)
[2023-11-25 16:55] LABS: Bedside Glucose 107 mg/dL (74-106)
[2023-11-25] MEDS: Atorvastatin Calcium 40 MG Tablet PO (20:06)
[2023-11-25 22:19] LABS: Bedside Glucose 94 mg/dL (74-106)
[2023-11-26 02:35] VITALS: BP 119/51; PULSE 84; RESP 18; TEMP 36.8; O2SAT 97
[2023-11-26] MEDS: oxyCODONE 5 MG Tablet 10 MG PO ×3 (03:25→18:04)
[2023-11-26 04:31] VITALS: BP 120/52; PULSE 76; RESP 16; TEMP 36.7; O2SAT 96
[2023-11-26] MEDS: proCHLORPERazine 10 MG/2 ML Vial 5 MG IV (05:56)
[2023-11-26] MEDS: 0.9% Saline Lock 10 ML Syringe IV ×2 (05:57→18:08)
[2023-11-26] MEDS: Piperacil/Tazobactam 3.375 GM in 0.9% Normal Saline (50mL MB+) 50 ML IV (05:57)
[2023-11-26] MEDS: Sucralfate 1 GM Tablet PO ×3 (06:47→16:40)
[2023-11-26 07:08] LABS: Bedside Glucose 101 mg/dL (74-106)
[2023-11-26 07:40] VITALS: O2SAT 99
[2023-11-26 08:04] LABS: Absolute Lymphocyte Count 1.73 X10^3/uL (0.83-4.51); Absolute Neutrophil Count 3.1 X10^3/uL (2.0-7.7); Basophil# 0.02 X10^3/uL; Basophil% 0.4 % (0-1); Eosinophil# 0.12 X10^3/uL; Eosinophils% 2.2 % (0-5); Hemoglobin 9.6 g/dL (13.0-16.5); Lymphocyte # 1.73 X10^3/ul (0.83-4.51); Lymphocyte % 32.2 % (19-41); Mean Corpuscular Hgb 27.8 pg (27.0-32.0); Mean Platelet Vol. 10.1 fl (6.2-12.0); Monocyte# 0.31 X10^3/uL; Monocyte% 5.8 % (0-10); NRBC Flagged by Analyzer 0 % (0-5); Neutrophil # 3.09 X10^3/uL (2.7-7.7); Neutrophil % 57.4 % (47-70); POSITIVE MORPHOLOGY YES; Platelet Count 297 K/mm3 (150-450); Red Blood Count 3.45 M/mm3 (4.6-6.2); White Blood Count 5.4 K/mm3 (4.4-11.0)
[2023-11-26 08:12] LABS: Differential Indicated SCAN CRITERIA MET
[2023-11-26 08:20] VITALS: BP 117/64; PULSE 85; RESP 17; TEMP 36.5; O2SAT 97
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
[2023-11-26] MEDS: ARIPiprazole 10 MG Tablet PO (08:26)
[2023-11-26] MEDS: metFORMIN HCl 500 MG Tablet PO ×2 (08:26→18:04)
[2023-11-26] MEDS: Venlafaxine XR 37.5 MG Capsule PO (08:27)
[2023-11-26 08:29] LABS: Anion Gap 9 (5-15); BUN 6 mg/dL (7-18); BUN/Creat Ratio 12.4 RATIO (10-20); Calcium,Total 8.1 mg/dL (8.5-10.1); Chloride 106 mmol/L (98-107); Creatinine, Serum 0.48 mg/dL (0.70-1.30); EST Glomerular Filtration Rate 189 mL/min (>60); Est Glom Filt Rate - Afr Amer 229 mL/min (>60); Estimated Creatinine Clearance 169.79 ml/min; Glucose 100 mg/dL (74-106); Potassium 3.3 mmol/L (3.5-5.1); Sodium Level 138 mmol/L (136-145)
[2023-11-26] MEDS: morphine SR 15 MG Tablet 30 MG PO (09:14)
[2023-11-26] MEDS: Pantoprazole Sodium 40 MG Tablet PO ×2 (09:24→22:08)
[2023-11-26 09:30] LABS: Atypical Lymphocyte RARE %; Reactive Lymphocyte RARE
[2023-11-26 12:07] LABS: Bedside Glucose 113 mg/dL (74-106)
--- NOTE | 2023-11-26 12:35 | CON.PCM.ID_ITS ---
Assessment & Plan Assessment/Plan (1) ESBL (extended spectrum beta-lactamase) producing bacteria infection: PLAN: ESBL ecoli recurrent uti with straight cath at home - on zosyn, not feeling any better in terms of his typical uti sx. Will change to meropenem. Tentative plan on discharge will be macrobid bid po for one week with urology followup. Will follow, thank you HPI Consult Data Date of Consult: 11/26/23 HPI Narrative Reason for Consultation: uti HPI Narrative: TERRY STINSON, is a 58 M with partial paraplegia, straight caths 5x/day at home, does not reuse catheters. Has frequent UTI. Dx with DVT, put on blood thinner, developed GI bleed. Admitted here, scope done by GI. Feeling better. Reports it feels like he has a uti, c/o pain and spasms across abd and lower back. Started on zosyn, not feeling any better. Full ROS performed and neg except as noted above. [facility] Medical History Hx of gastroesophageal reflux (GERD) PTSD (post-traumatic stress disorder) Prediabetes Anxiety and depression Paraplegia Home Medications ?Medication ?Instructions ?Recorded ?Last Taken ?Type cephalexin 500 mg capsule 500 mg PO Q12 #14 CAPSULES 10/13/23 Unknown Rx ciprofloxacin HCl 500 mg tablet 500 mg PO BID #14 tabs 10/25/23 Unknown Rx (Cipro) aripiprazole 10 mg tablet 10 mg PO DAILY 11/03/23 Unknown History atorvastatin 40 mg tablet 40 mg PO QHS 11/03/23 Unknown History ciprofloxacin HCl 250 mg tablet 250 mg PO BID 11/03/23 Unknown History desvenlafaxine succinate 50 mg 50 mg PO DAILY 11/03/23 Unknown History tablet,extended release 24 hr empagliflozin 25 mg tablet 25 mg PO .once 11/03/23 Unknown History (Jardiance) guanfacine 1 mg tablet,extended 1 mg PO QPM 11/03/23 Unknown History release 24 hr midodrine 5 mg tablet 5 mg PO DAILY 11/03/23 Unknown History morphine 30 mg capsule,extended 30 mg PO DAILY 11/03/23 Unknown History release pellets ondansetron 4 mg disintegrating 4 mg PO Q8H PRN PRN Nausea #10 tabs 11/03/23 Unknown Rx tablet oxycodone-acetaminophen 10 mg-325 1 tab PO Q6H PRN PRN severe pain 11/03/23 Unknown History mg tablet sucralfate 1 gram tablet (Carafate) 1 g PO TID 7 days #21 tabs 11/03/23 Unknown Rx famotidine 20 mg tablet (Pepcid) 20 mg PO DAILY PRN epigastric pain 11/11/23 Unknown Rx #20 tabs omeprazole 40 mg capsule,delayed 40 mg PO BID 11/11/23 Unknown History release sucralfate 100 mg/mL oral 10 ml PO BID #300 mL 11/11/23 Unknown Rx suspension (Carafate) rivaroxaban 15 mg (42)-20 mg (9) See Rx Instructions PO .COMPLEX 11/12/23 Unknown Rx tablets in a starter pack (Xarelto #51 tabs DVT-PE Treatment 30-Day Starter) nitrofurantoin 100 mg PO Q12H 7 days #14 caps 11/13/23 Unknown Rx monohydrate/macrocrystals 100 mg capsule (Macrobid) oxycodone myristate 18 mg capsule 18 mg PO BID 11/22/23 Unknown History sprinkle extended release 12hr(DON'T CRUSH) (Xtampza ER) Allergy/AdvReac Type Severity Reaction Status Date / Time cephalexin (From Keflex) Allergy Severe Anaphylaxis Verified 11/23/23 12:09 latex Allergy Rash Verified 11/23/23 12:09 Social History Smoking Status: Former smoker Physical Exam Const alert, oriented x3 and no apparent distress General Appearance: cooperative HEENT normocephalic and head/scalp atraumatic Eyes PERRL and EOMs intact bilaterally Neck supple and No nodes Resp normal air movement and clear to auscultation bilaterally Cardio regular rate and regular rhythm GI soft to palpation and non-distended GI Narrative: mild soreness lower abd Extremity General Extremity: Negative for edema Skin no rashes or lesions noted Neuro CN's II-XII intact bilaterally Lab / Micro Data Attestation: I reviewed the patient's lab results. 11/26/23 07:54 11/26/23 07:54 Labs: Laboratory Results - last 24 hr 11/22/23 21:35: Crossmatch See Detail 11/25/23 16:35: POC Glucose 107 H 11/25/23 20:31: POC Glucose 94 11/26/23 06:44: POC Glucose 101 11/26/23 07:54: WBC 5.4, RBC 3.45 L, Hgb 9.6 L, Hct 30.0 L, MCV 87.0, MCH 27.8, MCHC 32.0, RDW Std Deviation 44.0 H, RDW Coeff of Darcy 14.0, Plt Count 297, MPV 10.1, Immature Gran % (Auto) 2.000 H, Neut % (Auto) 57.4, Lymph % (Auto) 32.2, [place] % (Auto) 5.8, Eos % (Auto) 2.2, Baso % (Auto) 0.4, Absolute Neuts (auto) 3.1, Absolute Lymphs (auto) 1.73, Nucleated RBC % 0, Atypical Lymphocytes RARE, Reactive Lymphocytes RARE, Sodium 138, Potassium 3.3 L, Chloride 106, Carbon Dioxide 23.0, Anion Gap 9, BUN 6 L, Creatinine 0.48 L, Estim Creat Clear Calc 169.79, Est GFR (MDRD) Af Amer 229, Est GFR (MDRD) Non-Af 189, BUN/Creatinine Ratio 12.4, Glucose 100, Calcium 8.1 L 11/26/23 11:44: POC Glucose 113 H Micro: Microbiology 11/22/23 04:40 Urine Catheter - Plata Urine Culture - Final ESBL Escherichia coli 11/24/23 23:20 Stool Enteric Bacteriology - Final
[2023-11-26 14:05] LABS: Hemoglobin 10.2 g/dL (13.0-16.5)
[2023-11-26] MEDS: Meropenem 1 GM in 0.9% Normal Saline (100mL MB+) 100 ML IV ×2 (15:04→22:02)
--- NOTE | 2023-11-26 15:38 | CASEMGMT ---
CARMENCITA GONSALES NOTE: Therapy notes reviewed. Additional therapy recommended by OT. CARMENCITA GONSALES to room. Pt resting in bed. Discussed discharge planning. Pt states he wishes to discharge home and denies need for HHC or OP therapy and also declines wanting HHC for SN, stating he does not need any further education re: DM or nurse to check on him. He states his GF, Harmony, can assist him w/anything he needs. He feels he did well w/transferring today and feels closed to his baseline. He was made aware, if he changes his mind about HHC/OP ther, to discuss this w/his PCP. He voices understanding. Pt does not have a glucometer and will need script for one @ dc. Darrell ROMERON CARMENCITA GONSALES
[2023-11-26 16:07] VITALS: BP 118/57; PULSE 80; RESP 16; TEMP 36.6; O2SAT 100
[2023-11-26 17:16] LABS: Bedside Glucose 112 mg/dL (74-106)
[2023-11-26] MEDS: Metoclopramide 10 MG/2 ML Vial 5 MG IV (18:08)
[2023-11-26 21:58] VITALS: BP 117/64; PULSE 88; RESP 18; TEMP 36.7; O2SAT 98
[2023-11-26] MEDS: Atorvastatin Calcium 40 MG Tablet PO (22:08)
[2023-11-26 22:56] LABS: Bedside Glucose 113 mg/dL (74-106)
[2023-11-27] MEDS: oxyCODONE 5 MG Tablet 10 MG PO ×3 (00:05→12:37)
[2023-11-27 03:21] VITALS: BP 112/67; PULSE 84; RESP 18; TEMP 36.8; O2SAT 97
[2023-11-27] MEDS: Sucralfate 1 GM Tablet PO ×2 (06:17→11:18)
[2023-11-27] MEDS: Meropenem 1 GM in 0.9% Normal Saline (100mL MB+) 100 ML IV (06:17)
[2023-11-27 06:21] LABS: Absolute Lymphocyte Count 1.44 X10^3/uL (0.83-4.51); Absolute Neutrophil Count 4.8 X10^3/uL (2.0-7.7); Basophil# 0.02 X10^3/uL; Basophil% 0.3 % (0-1); Eosinophil# 0.15 X10^3/uL; Eosinophils% 2.2 % (0-5); Hematocrit 32.9 % (40-54); Hemoglobin 10.6 g/dL (13.0-16.5); Lymphocyte # 1.44 X10^3/ul (0.83-4.51); Mean Corp Hgb Conc 32.2 g/dL (32-36); Mean Corpuscular Hgb 27.6 pg (27.0-32.0); Mean Corpuscular Volume 85.7 fL (80-94); Mean Platelet Vol. 9.8 fl (6.2-12.0); Monocyte% 4.4 % (0-10); NRBC Flagged by Analyzer 0 % (0-5); Neutrophil # 4.82 X10^3/uL (2.7-7.7); Neutrophil % 70.1 % (47-70); Platelet Count 361 K/mm3 (150-450); RBC Distribution Width CV 13.9 % (11.6-14.6); Red Blood Count 3.84 M/mm3 (4.6-6.2); White Blood Count 6.9 K/mm3 (4.4-11.0)
[2023-11-27 06:37] LABS: Bedside Glucose 96 mg/dL (74-106)
[2023-11-27 07:05] LABS: Phosphorus 2.9 mg/dL (2.5-4.9)
[2023-11-27 07:07] LABS: Anion Gap 7 (5-15); BUN 4 mg/dL (7-18); Calcium,Total 8.5 mg/dL (8.5-10.1); Chloride 102 mmol/L (98-107); EST Glomerular Filtration Rate 183 mL/min (>60); Est Glom Filt Rate - Afr Amer 221 mL/min (>60); Glucose 107 mg/dL (74-106); Magnesium 1.5 mg/dL (1.6-2.6); Sodium Level 136 mmol/L (136-145)
[2023-11-27 09:02] VITALS: BP 137/68; PULSE 99; RESP 16; TEMP 36.8; O2SAT 96
[2023-11-27] MEDS: metFORMIN HCl 500 MG Tablet PO (09:11)
[2023-11-27] MEDS: ARIPiprazole 10 MG Tablet PO (09:13)
[2023-11-27] MEDS: Venlafaxine XR 37.5 MG Capsule PO (09:14)
[2023-11-27] MEDS: Pantoprazole Sodium 40 MG Tablet PO (09:15)
[2023-11-27] MEDS: morphine SR 15 MG Tablet 30 MG PO (09:20)
[2023-11-27] MEDS: Magnesium Sulfate 2 GM in Dextrose 5%-Water (100mL Bag) 100 ML IV (09:24)
--- NOTE | 2023-11-27 10:03 | PCM.PN.ID ---
Physical Exam Narrative Abd pain and spasms are a little better, no fever Const alert and no apparent distress General Appearance: cooperative Resp normal air movement and clear to auscultation bilaterally Cardio regular rate and regular rhythm GI soft to palpation, non-tender and non-distended Skin no rashes or lesions noted ID ID: Route of nutrition/ use of supplements: [] Nutritional Intake: [] IV Site: [] Plata Catheter: [] Assessment & Plan Assessment/Plan (1) ESBL (extended spectrum beta-lactamase) producing bacteria infection: PLAN: ESBL ecoli recurrent uti with straight cath at home - on zosyn, not feeling any better in terms of his typical uti sx. 11/25 changed to meropenem. Sx are a little better this AM. Tentative plan on discharge will be macrobid bid po for one week with urology followup. Will follow
[2023-11-27] MEDS: Potassium Chloride Oral Tablet 20 MEQ 60 MEQ PO (11:14)
[2023-11-27] MEDS: Loperamide 2 MG Capsule PO (11:15)
--- NOTE | 2023-11-27 11:38 | CASEMGMT ---
ADVANCE DIRECTIVE VALIDATION Received notice of advance directive validation. Patient answered upon admission that does not have any directives in placed; also declined wanting any further information on this topic. No further needs requested or indicated for this topic. -NADIYA Quick
[2023-11-27 11:50] LABS: Bedside Glucose 124 mg/dL (74-106)
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
--- NOTE | 2023-11-27 14:32 | CASEMGMT ---
Patient has order to discharge. RN CM in to discuss needs at discharge, girlfriend at bedside. Patient provide script for glucometer. Patient and girlfriend deny further needs or help at discharge. Patient and girlfriend had no further questions or concerns.
[2023-11-27 15:00] VITALS: BP 132/74; PULSE 98; RESP 14; TEMP 36.6; O2SAT 98
--- NOTE | 2023-11-27 15:49 | PHA.DC_ITS ---
Pharmacy [facility] has performed discharge medication reconciliation and counseling for this patient. 1. LACTOBACILLUS 1C PO BID 2. LOPERAMIDE 2MG PO Q2H PRN DIARRHEA 3. METFORMIN 500MG PO BID 4. NITROFURANTOIN 100MG PO BID X 7 DAYS 5. PANTOPRAZOLE 40MG PO BID The patient's discharge medication list was reviewed for discrepancies and discrepancies were resolved. The patient was counseled on the following discharge medications and changes in medications for homegoing were reviewed. The Reason for Use, instructions for use, and potential side effects were reviewed for all new medications. The patient's questions regarding all of their medications were answered. The patient was able to verbally demonstrate an understanding of their discharge medications. Patient counseled by student activities directorDawson. Medications at Discharge Home Medications aripiprazole 10 mg tablet 10 mg PO DAILY mental health 11/03/23 atorvastatin 40 mg tablet 40 mg PO QHS cholesterol 11/03/23 desvenlafaxine succinate 50 mg tablet,extended release 24 hr 50 mg PO DAILY mental health 11/03/23 empagliflozin 25 mg tablet (Jardiance) 25 mg PO .once diabetes 11/03/23 guanfacine 1 mg tablet,extended release 24 hr 1 mg PO QPM ADHD 11/03/23 midodrine 5 mg tablet 5 mg PO DAILY blood pressure 11/03/23 morphine 30 mg capsule,extended release pellets 30 mg PO DAILY pain 11/03/23 ondansetron 4 mg disintegrating tablet 4 mg PO Q8H PRN PRN Nausea #10 tabs 11/03/23 oxycodone-acetaminophen 10 mg-325 mg tablet 1 tab PO Q6H PRN PRN severe pain 11/03/23 oxycodone myristate 18 mg capsule sprinkle extended release 12hr(DON'T CRUSH) (Xtampza ER) 18 mg PO BID 11/22/23 Lactobacillus acidophilus (Acidophilus capsule) 1,000 mmu cells PO BID #14 caps 11/27/23 loperamide 2 mg capsule 2 mg PO Q2H PRN PRN Diarrhea/Loose Stools #0 caps 11/27/23 metformin 500 mg tablet 500 mg PO BIDCM #60 tabs 11/27/23 nitrofurantoin monohydrate/macrocrystals 100 mg capsule (Macrobid) 100 mg PO BID #14 caps 11/27/23 pantoprazole 40 mg tablet,delayed release 40 mg PO BID #60 tabs 11/27/23 sucralfate 1 gram tablet 1 g PO 0700,1100,1600 #90 tabs 11/27/23
== END 2023-11-27 15:55 | disposition home or self-care (01) | DRG 381 ==
LOC: ED 22:28 → PCU 11-23 00:11
PROVIDERS: Internal Medicine Gastroenterology; Student in an Organized Health Care Education/Training Program; Admitting Provider Hospitalist; Emergency Provider Emergency Medicine; PCP Family Medicine; Visit Provider Internal Medicine
PROC: 0DJ08ZZ Inspection of Upper Intestinal Tract, Via Natural or Artificial Opening Endoscopic (ICD-10-PCS; CPT 43235; principal; 2023-11-23 12:40)
DX: K22.11 Ulcer of esophagus with bleeding (principal); E87.1 Hypo-osmolality and hyponatremia; I82.412 Acute embolism and thrombosis of left femoral vein; D68.32 Hemorrhagic disorder due to extrinsic circulating anticoagulants; I82.432 Acute embolism and thrombosis of left popliteal vein; N39.0 Urinary tract infection, site not specified; Z16.12 Extended spectrum beta lactamase (ESBL) resistance; K21.01 Gastro-esophageal reflux disease with esophagitis, with bleeding; F44.4 Conversion disorder with motor symptom or deficit; E11.65 Type 2 diabetes mellitus with hyperglycemia; F32.A Depression, unspecified; E78.5 Hyperlipidemia, unspecified; E86.0 Dehydration; K44.9 Diaphragmatic hernia without obstruction or gangrene; E87.6 Hypokalemia; E83.42 Hypomagnesemia; F41.9 Anxiety disorder, unspecified; R19.7 Diarrhea, unspecified; K26.9 Duodenal ulcer, unspecified as acute or chronic, without hemorrhage or perforation; R33.8 Other retention of urine; B96.20 Unspecified Escherichia coli [E. coli] as the cause of diseases classified elsewhere; G89.4 Chronic pain syndrome; Z79.01 Long term (current) use of anticoagulants; Z79.891 Long term (current) use of opiate analgesic; Z79.84 Long term (current) use of oral hypoglycemic drugs; Z79.899 Other long term (current) drug therapy; Z87.891 Personal history of nicotine dependence
CPT/HCPCS: 36415; 37191; 74177; 76937; 80048; 80053; 81001; 82274; 82962; 83036; 83690; 83735; 83930; 83935; 84100; 84300; 85018; 85025; 85027; 85610; 85730; 86850; 86900; 86901; 86920; 86922; 87040; 87086; 87088; 87186; 87493; 87506; 88305; 88312; 93005; 94668; 97163; 97166; 97530; 97802; 99152; 99153; 99285; C1880; C1894; J2185; J7040; J7120; Q9967; A4216; C1769; J2405; J3490

== ENCOUNTER 2024-01-02 17:16 | Emergency (ER) | payer MEDICARE, MEDICAID, SELFPAY ==
[2024-01-02] VITALS (7 sets, daily range): BP systolic 124–175; BP diastolic 61–78; PULSE 79–88; RESP 16–18; TEMP 36.3–36.7; O2SAT 95–98; BMI 26.2
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
[2024-01-02] MEDS: oxyCODONE 5 MG Tablet 10 MG PO (18:23)
[2024-01-02 18:31] LABS: Mucous, Urine 0 SEEN /hpf (<or=2+); Squamous Epithelial Cells - UA 0 SEEN /hpf (0-5)
[2024-01-02 18:36] LABS: Absolute Lymphocyte Count 1.46 X10^3/uL (0.83-4.51); Absolute Neutrophil Count 5.5 X10^3/uL (2.0-7.7); Basophil# 0.04 X10^3/uL; Basophil% 0.5 % (0-1); Eosinophil# 0.12 X10^3/uL; Eosinophils% 1.6 % (0-5); Hematocrit 32.1 % (40-54); Hemoglobin 9.8 g/dL (13.0-16.5); Lymphocyte # 1.46 X10^3/ul (0.83-4.51); Lymphocyte % 19.1 % (19-41); Mean Corp Hgb Conc 30.5 g/dL (32-36); Mean Corpuscular Hgb 25.7 pg (27.0-32.0); Mean Platelet Vol. 9.5 fl (6.2-12.0); Monocyte# 0.48 X10^3/uL; Monocyte% 6.3 % (0-10); NRBC Flagged by Analyzer 0 % (0-5); Neutrophil # 5.52 X10^3/uL (2.7-7.7); Neutrophil % 72.2 % (47-70); Platelet Count 353 K/mm3 (150-450); RBC Distribution Width CV 13.6 % (11.6-14.6); RBC Distribution Width SD 41.7 fl (35.1-43.9); Red Blood Count 3.82 M/mm3 (4.6-6.2); White Blood Count 7.6 K/mm3 (4.4-11.0)
[2024-01-02 18:40] LABS: Anion Gap 8 (5-15); BUN 11 mg/dL (7-18); BUN/Creat Ratio 16.5 RATIO (10-20); Calcium,Total 8.9 mg/dL (8.5-10.1); Chloride 106 mmol/L (98-107); Creatinine, Serum 0.66 mg/dL (0.70-1.30); EST Glomerular Filtration Rate 131 mL/min (>60); Est Glom Filt Rate - Afr Amer 158 mL/min (>60); Estimated Creatinine Clearance 123.49 ml/min; Glucose 151 mg/dL (74-106); Potassium 3.6 mmol/L (3.5-5.1); Sodium Level 139 mmol/L (136-145)
[2024-01-02 18:41] LABS: Color, Urine Yellow (Yellow); Glucose, Dipstick 1000 mg/dl (Normal); Ketone-Dipstick Negative (Negative); Leukocyte Esterase-Dipstick 500 /ul (Negative); Nitrite-Dipstick Negative (Negative); Occult Blood-Urine 25 /ul (Negative); Protein-Dipstick 15 mg/dl (Negative); Specific Gravity, Urine 1.015 (1.002-1.030); Urine Bilirubin Dipstick Negative (Negative); Urine Clarity Sl. Cloudy (Clear); Urine Urobilinogen Normal (Normal)
[2024-01-02 18:52] LABS: Yeast-Urine 3+ /hpf (None Seen)
[2024-01-02 18:53] LABS: Bacteria 1+ /hpf (None Seen); Red Blood Cells-Urine 0-5 SEEN /hpf (0-5); White Blood Cells 25-50 SEEN /hpf (0-5)
== END 2024-01-02 20:32 | disposition home or self-care (01) ==
PROVIDERS: Emergency Provider Emergency Medicine; PCP Family Medicine; Visit Provider Emergency Medicine
DX: N39.0 Urinary tract infection, site not specified (principal); G82.20 Paraplegia, unspecified; Z86.718 Personal history of other venous thrombosis and embolism; Z87.19 Personal history of other diseases of the digestive system; Z87.891 Personal history of nicotine dependence
CPT/HCPCS: 51702; 80048; 81001; 85025; 87086; 87088; 99285; J7030; A4216

== ENCOUNTER → 2024-01-09 | Outpatient (CLI) | payer MEDICARE, MEDICAID, SELFPAY | END | disposition home or self-care (01) | LOC: LAB 14:35 | PROVIDERS: PCP Family Medicine | DX: S37.30XA Unspecified injury of urethra, initial encounter (principal); X58.XXXA Exposure to other specified factors, initial encounter; N14.0 Analgesic nephropathy | CPT/HCPCS: 87086; 87088 ==

== ENCOUNTER 2024-01-10 09:30 | Outpatient (RCR) | payer MEDICARE, MEDICAID, SELFPAY | END 2024-01-10 19:00 | disposition home or self-care (01) | LOC: PT 09:30 | PROVIDERS: PCP Family Medicine; Referring Provider Anesthesiology; Visit Provider Anesthesiology | DX: M25.512 Pain in left shoulder (principal) | CPT/HCPCS: 97110; 97163; 97530 ==